=== PATIENT | female | born 1975 ===

== ENCOUNTER 2017-04-24 14:38 | Emergency (ER) | payer MEDICAID ==
[2017-04-24 14:39] VITALS: BMI 28.2
[2017-04-24] MEDS ORDERED: Sodium Chloride 0.9% 1,000 ML IV STA (15:01)
[2017-04-24 15:42] LABS: BASO % 0.6 % (0.0-2.0); EOS % 0.7 % (0.0-4.0); HEMATOCRIT 31.7 % (34.0-47.0); LYMPH # 1.1 K/uL (1.0-4.3); MEAN CELL VOLUME 97.3 fl (81.0-99.0); MEAN CORPUSCULAR HEMOGLOBIN 32.8 pg (27.0-31.0); MEAN CORPUSCULAR HGB CONC 33.7 g/dL (33.0-37.0); MEAN PLATELET VOLUME 9.8 fl (7.2-11.7); MONO # 0.5 K/uL (0.0-0.8); MONO % 12.9 % (0.0-10.0); NEUT % 55.8 % (50.0-75.0); NRBC % 0.2 % (0.0-0.0); RED CELL DISTRIBUTION WIDTH 13.3 % (11.5-14.5); WHITE BLOOD COUNT 3.6 K/uL (4.8-10.8)
[2017-04-24 15:50] LABS: ALB/GLOB RATIO 1.2 (1.0-2.1); ALKALINE PHOSPHATASE 57 U/L (38-126); ALT/SGPT 20 U/L (9-52); AST/SGOT 19 U/L (14-36); BILIRUBIN,TOTAL < 0.1 mg/dl (0.2-1.3); BLOOD UREA NITROGEN 9 mg/dl (7-17); CALCIUM 8.7 mg/dL (8.4-10.2); CARBON DIOXIDE 27 mmol/L (22-30); CHLORIDE 104 mmol/L (98-107); GFR AFRICAN-AMERICAN > 60; GLUCOSE,RANDOM 80 mg/dL (65-105); MAGNESIUM 1.7 MG/DL (1.6-2.3); POTASSIUM 3.7 MMOL/L (3.6-5.0); SODIUM 140 mmol/l (132-148)
--- NOTE | 2017-04-24 16:48 | ED PDOC ---
Syncope/Near Syncope/Dizziness Time Seen by Provider: 04/24/17 15:01 Chief Complaint (Nursing): Dizziness/Lightheaded Chief Complaint (Provider): syncope History Per: Patient (41 y/o female here with syncope x 2 episodes today. Has had intermittent chest pain radiating to right arm x few days. Seen in clinic today and sent to ED for evaluation. Patient is FIELD REPORTER. Has family h/o ME but patient does not believe any members with heart disease at young age. (-) smoking/ (-) HTN (-) DM ) Past Medical History Reviewed: Historical Data, Nursing Documentation, Vital Signs Vital Signs: Last Vital Signs Temp 99 F 04/24/17 14:41 Pulse 72 04/24/17 14:41 Resp 20 04/24/17 14:41 BP 123/70 04/24/17 14:41 Pulse Ox 98 04/24/17 14:41 - Surgical History Surgical History: Tonsillectomy, (x 4) - Family History Family History: States: CAD - Home Medications Home Medications: Ambulatory Orders Medication Instructions Recorded Albuterol HFA [Ventolin HFA 90 1 puff IH ASDIR #1 unit 07/06/15 mcg/actuation (8 g)] Benzonatate [Tessalon Perles] 200 mg PO Q8H PRN #30 tab 07/06/15 Levofloxacin [Levaquin] 500 mg PO DAILY #10 tab 07/06/15 Methylprednisolone [Medrol Dose 4 mg PO ASDIR #21 mg 07/06/15 Pack (21 tabs)] ALPRAZolam [Xanax] 0.25 mg PO HS PRN #5 tab 09/07/16 Azithromycin [Zithromax] 250 mg PO DAILY #4 tab 12/13/16 Cetirizine HCl/Pseudoephedrine 1 each PO BID PRN #10 tab.er.12h 12/13/16 [Zyrtec-D Tablet] - Allergies Allergies/Adverse Reactions: Allergies Allergy/AdvReac Type Severity Reaction Status Date / Time No Known Allergies Allergy Verified 04/24/17 14:40 Review of Systems ROS Statement: Except As Marked, All Systems Reviewed And Found Negative Physical Exam - Reviewed Nursing Documentation Reviewed: Yes Vital Signs Reviewed: Yes - Physical Exam Appears: Positive for: Well, Non-toxic, No Acute Distress Head Exam: Positive for: ATRAUMATIC, NORMAL INSPECTION, NORMOCEPHALIC Skin: Positive for: Normal Color, Warm, DRY Eye Exam: Positive for: EOMI, Normal appearance, PERRL ENT: Positive for: Normal ENT Inspection Neck: Positive for: Normal, Painless ROM Cardiovascular/Chest: Positive for: Regular Rate, Rhythm, Chest Non Tender Respiratory: Positive for: CNT, Normal Breath Sounds Gastrointestinal/Abdominal: Positive for: Normal Exam, Bowel Sounds, Soft Back: Positive for: Normal Inspection Extremity: Positive for: Normal ROM Neurologic/Psych: Positive for: Alert, Oriented - Laboratory Results Result Diagrams: 04/24/17 15:29 04/24/17 15:29 Urine POC: Negative - ECG O2 Sat by Pulse Oximetry: 98 - Progress ED Course And Treament: nsr 68bpm; no ectopy; no acute changes NS 1 liter wide open cxr: nad Seen by Family med resident. Admit tele obs for Syncope Disposition - Clinical Impression Clinical Impression: Syncope - Patient ED Disposition Is Patient to be Admitted: Yes - Disposition Disposition Time: 17:30 Condition: FAIR
--- NOTE | 2017-04-24 17:11 | RAD ---
Chest PA and lateral Indication: Chest pain Comparison: Chest x-ray performed 12/13/16 Findings: The cardiomediastinal silhouette appears within normal limits of size. Bilateral hilar prominence. No focal consolidation, significant pleural effusion, or definite pneumothorax evident. Please note that chest x-ray has limited sensitivity for the detection of pulmonary masses. No acute osseous abnormality is detected. Impression: Bilateral hilar prominence, right greater than left. Underlying adenopathy cannot be excluded. Correlate clinically. CT of the chest with IV contrast may be considered if clinically indicated.
--- NOTE | 2017-04-24 17:41 | CP.PCM.HP ---
History of Present Illness - History of Present Illness History of Present Illness: 41 year old female with PMH of anxiety, insomnia, reactive depression, PCOS, migraines sent to [facility] ED from [facility] clinic for complaints of chest pain and syncope. Syncopal episode was witnessed and reports loss of conciousness 'only lasted a ten seconds', and happened on 2 separate occasions. First episode during a BBQ, second episode was at [place], both episodes occurred while sitting. Denies trauma to head. She has right sided anterior chest pain that is reproducible with movement of right arm. Pain radiates to right neck however she is not currently experiencing pain in neck. Endorses urinary frequency, without dysuria/polyuria, endorses urine checked in clinic was negative. Her anxiety and insomnia have improved, however she is not currently on any medication for this. Denies h/a, dizziness, palpitations, chest heaviness or diaphoresis, nausea, vomiting recent illness, pedal edema. PMD: [facility] Psychiatry: Dr. Olson Meds: none allergies : NKDA Social :denies smoking ,etoh, illicit drug use Surgical Hx: hysterectomy, oophorectomy [employer]: LMP 2015. ED course: VS: T: 99, HR 72, BP:123/70, RR: 20, O2SAT: 98% on RA CBC: leukopenia, anemia CMP: WNL D-dimer: 128 EKG: NSR 68 CXR: no active disease. Trop negative x 1 NS 1L bolus Present on Admission - Present on Admission Any Indicators Present on Admission: No Past Patient History - Past Social History Smoking Status: Never Smoked - PSYCHIATRIC Hx Substance Use: No - SURGICAL HISTORY Hx Tonsillectomy: Yes Meds Allergies/Adverse Reactions: Allergies Allergy/AdvReac Type Severity Reaction Status Date / Time No Known Allergies Allergy Verified 04/24/17 14:40 Physical Exam - Constitutional Appears: Non-toxic, No Acute Distress - Head Exam Head Exam: NORMAL INSPECTION - Eye Exam Eye Exam: EOMI, Normal appearance - ENT Exam ENT Exam: Mucous Membranes Moist - Neck Exam Neck exam: Positive for: Full Rom - Respiratory Exam Respiratory Exam: Clear to Auscultation Bilateral, NORMAL BREATHING PATTERN Additional comments: anterior chest: right sided tenderness to palpation - Cardiovascular Exam Cardiovascular Exam: REGULAR RHYTHM, RRR, +S1, +S2. absent: Bradycardia, Tachycardia - GI/Abdominal Exam GI & Abdominal Exam: Soft. absent: Distended, Tenderness - Extremities Exam Extremities exam: Positive for: pedal pulses present (+2 DP). Negative for: calf tenderness, pedal edema - Neurological Exam Neurological exam: Alert, CN II-XII Intact, Oriented x3 Additional comments: No motor sesory deficit. - Psychiatric Exam Psychiatric exam: Normal Affect, Normal Mood - Skin Skin Exam: Dry, Intact, Normal Color Results - Vital Signs Recent Vital Signs: Last Vital Signs Temp 99 F 04/24/17 14:41 Pulse 72 04/24/17 14:41 Resp 20 04/24/17 14:41 BP 123/70 04/24/17 14:41 Pulse Ox 98 04/24/17 17:30 - Labs Result Diagrams: 04/24/17 15:29 04/24/17 15:29 Labs: Laboratory Results - last 24 hr 04/24/17 04/24/17 04/24/17 15:29 15:29 15:29 WBC 3.6 L RBC 3.26 L Hgb 10.7 L Hct 31.7 L MCV 97.3 MCH 32.8 H MCHC 33.7 RDW 13.3 Plt Count 223 MPV 9.8 Neut % (Auto) 55.8 Lymph % (Auto) 30.0 Glenn % (Auto) 12.9 H Eos % (Auto) 0.7 Baso % (Auto) 0.6 Neut # 2.0 Lymph # 1.1 Glenn # 0.5 Eos # 0.0 Baso # 0.0 D-Dimer, Quantitative 128 Sodium 140 Potassium 3.7 Chloride 104 Carbon Dioxide 27 Anion Gap 13 BUN 9 Creatinine 0.7 Est GFR ( Amer) > 60 Est GFR (Non-Af Amer) > 60 Random Glucose 80 Calcium 8.7 Magnesium 1.7 Total Bilirubin < 0.1 L AST 19 ALT 20 Alkaline Phosphatase 57 Troponin I < 0.0120 Total Protein 7.0 Albumin 3.8 Globulin 3.2 Albumin/Globulin Ratio 1.2 Assessment & Plan (1) Syncope Status: Acute (2) Anemia Status: Chronic (3) Leukopenia Status: Chronic (4) Chest pain Status: Acute (5) DVT prophylaxis Status: Acute - Assessment and Plan (Free Text) Assessment: 41 year old female with no cardiac history presents with two syncopal episodes, admitted for rule out ACS. Syncope is most likely neurocardiogenic in nature, rule out other causes. .Syncope Most likely neurocardiogenic in nature, however must rule out cardiac vs orthstatic vs pulmonary embolism vs acute intoxication -Consider Neuro eval pending CT results. -Cardiac etiology unlikely given normal ECG,troponins no indication for echocardiogram at this time. -follow up orthostatic vitals, unlikely given patient was sitting at the time of both syncopal episodes. -Pulmonary embolism ruled out: no dyspnea, chest pain, ECG changes. d-dimer 128 , WNL. -Follow up: * CT head without contrast * troponins * TSH * urine drug screen * serum alcohol .Leukopenia and Anemia chronic, stable Follow up: * HIV * Ferritin .Chest Pain -likely secondary to costochondritis, rule out ACS -EKG WNL, troponin neg x1 -tylenol for pain PRN -follow up troponins. .DVT prophylaxis Lovenox 40mg SC
--- NOTE | 2017-04-24 19:07 | CT ---
PROCEDURE: CT HEAD WITHOUT CONTRAST. HISTORY: syncope COMPARISON: None available. TECHNIQUE: Axial computed tomography images were obtained through the head/brain without intravenous contrast. Radiation dose: Total exam DLP = 889.87 mGy-cm. This CT exam was performed using one or more of the following dose reduction techniques: Automated exposure control, adjustment of the mA and/or kV according to patient size, and/or use of iterative reconstruction technique. FINDINGS: HEMORRHAGE: No intracranial hemorrhage. BRAIN: No mass effect or edema. The manuel-white matter differentiation appears intact. Please note that MRI with diffusion imaging is more sensitive in the detection of acute ischemic event. VENTRICLES: No hydrocephalus. CALVARIUM: Unremarkable. PARANASAL SINUSES: Unremarkable as visualized. No significant inflammatory changes. MASTOID AIR CELLS: Unremarkable as visualized. No inflammatory changes. OTHER FINDINGS: None. IMPRESSION: No acute intracranial pathology identified.
[2017-04-24 22:31] VITALS: BP 144/74; PULSE 69; RESP 14; TEMP 98.1; O2SAT 100
--- NOTE | 2017-04-24 23:41 | CARD ---
APPROVED REPORT EKG Measurement Heart [id number] <Conclusion> Normal sinus rhythm Normal ECG
[2017-04-25] MEDS ORDERED: Enoxaparin 40 mg Syringe SC SCH (09:00)
== END 2017-04-24 22:28 | disposition left against medical advice (07) ==
LOC: H.ER 14:38 → H.ERHOLD 17:30 → UNDOADMOB 17:30 → UNDODISOB 22:28
DX: R55 Syncope and collapse (principal); D72.818 Other decreased white blood cell count; F41.9 Anxiety disorder, unspecified; D64.9 Anemia, unspecified; G47.00 Insomnia, unspecified; E28.2 Polycystic ovarian syndrome; M94.0 Chondrocostal junction syndrome [Tietze]; Z21 Asymptomatic human immunodeficiency virus [HIV] infection status

== ENCOUNTER 2017-04-26 14:53 | Inpatient (IN) | payer MEDICAID ==
[2017-04-26 14:53] VITALS: BMI 28.2
[2017-04-26 17:06] LABS: RBC URINE 1 /hpf (0-3); URINE BACTERIA RARE (<OCC); URINE BILIRUBIN NEGATIVE (NEGATIVE); URINE BLOOD NEGATIVE (NEGATIVE); URINE COLOR YELLOW (YELLOW); URINE GLUCOSE (UA) NEG (Normal); URINE KETONE NEGATIVE (NEGATIVE); URINE LEUKOCYTE ESTERASE NEG Leu/uL (Negative); URINE PROTEIN NEGATIVE (NEGATIVE); URINE UROBILINOGEN 0.2-1.0 mg/dL (0.2-1.0); WBC URINE 1 /hpf (0-5)
[2017-04-26 17:07] LABS: BASO % 0.4 % (0.0-2.0); EOS # 0.1 K/uL (0.0-0.7); EOS % 1.5 % (0.0-4.0); HEMATOCRIT 32.3 % (34.0-47.0); LYMPH # 1.1 K/uL (1.0-4.3); LYMPH % 28.7 % (20.0-40.0); MEAN CORPUSCULAR HEMOGLOBIN 32.2 pg (27.0-31.0); MEAN CORPUSCULAR HGB CONC 32.9 g/dL (33.0-37.0); MEAN PLATELET VOLUME 9.8 fl (7.2-11.7); MONO # 0.5 K/uL (0.0-0.8); MONO % 12.8 % (0.0-10.0); NEUT # 2.1 K/uL (1.8-7.0); NEUT % 56.6 % (50.0-75.0); NRBC % 0.1 % (0.0-0.0); RED CELL DISTRIBUTION WIDTH 13.3 % (11.5-14.5); WHITE BLOOD COUNT 3.8 K/uL (4.8-10.8)
--- NOTE | 2017-04-26 17:09 | ED PDOC ---
HPI: General Adult Time Seen by Provider: 04/26/17 16:02 Chief Complaint (Nursing): Weakness/Neurological Deficit History Per: Patient Additional Complaint(s): Pt. states on Monday she had 2 witnessed syncopal episodes. Reports that she was seen in [facility] ED and was admitted but waited a long time therefore she signed out AMA. Pt. states since then she's felt very weak and therefore she went to [facility] and was instructed to come to ED for admission. Also reports she's been having R sided chest pain x 2 weeks which was also evaluated in the previous visit. Denies fever, headache, head injury, hx of DVT/PE, leg pain. Past Medical History Reviewed: Historical Data, Nursing Documentation, Vital Signs Vital Signs: Last Vital Signs Temp 97.8 F 04/26/17 14:54 Pulse 69 04/26/17 14:54 Resp 18 04/26/17 14:54 BP 120/97 H 04/26/17 14:54 Pulse Ox 100 04/26/17 14:54 - Surgical History Surgical History: Tonsillectomy, (x 4) - Family History Family History: States: CAD - Home Medications Home Medications: Ambulatory Orders Medication Instructions Recorded No Known Home Med 04/24/17 - Allergies Allergies/Adverse Reactions: Allergies Allergy/AdvReac Type Severity Reaction Status Date / Time No Known Allergies Allergy Verified 04/24/17 14:40 Review of Systems ROS Statement: Except As Marked, All Systems Reviewed And Found Negative Neurological: Positive for: Dizziness Physical Exam - Reviewed Nursing Documentation Reviewed: Yes Vital Signs Reviewed: Yes - Physical Exam Appears: Positive for: Well, Non-toxic, No Acute Distress Head Exam: Positive for: ATRAUMATIC, NORMAL INSPECTION, NORMOCEPHALIC Skin: Positive for: Normal Color, Warm. Negative for: Rash Eye Exam: Positive for: EOMI, Normal appearance, PERRL ENT: Positive for: Normal ENT Inspection Neck: Positive for: Normal, Painless ROM Cardiovascular/Chest: Positive for: Regular Rate, Rhythm Respiratory: Positive for: CNT, Normal Breath Sounds Gastrointestinal/Abdominal: Positive for: Normal Exam, Soft. Negative for: Tenderness Back: Positive for: Normal Inspection. Negative for: L CVA Tenderness, R CVA Tenderness Extremity: Positive for: Normal ROM Neurologic/Psych: Positive for: Alert, Oriented. Negative for: Aphasia, Facial Droop - ECG ECG: Positive for: Interpreted By Me ECG Rhythm: Positive for: Sinus Rhythm. Negative for: ST/T Changes Rate: 65 O2 Sat by Pulse Oximetry: 100 - Progress ED Course And Treament: Labs ordered. Pt. placed on cardiac surgeon. Case d/w Dr. Thapa, FP resident, and arrangements made for 23 hr observation. Disposition - Clinical Impression Clinical Impression: Acute weakness, Syncope - Patient ED Disposition Is Patient to be Admitted: Yes - Disposition Disposition: Routine/Home Disposition Time: 17:13 Condition: STABLE
[2017-04-26 17:13] LABS: PARTIAL THROMBOPLASTIN TIME 30.4 Seconds (25.6-37.1)
[2017-04-26 17:24] LABS: ALB/GLOB RATIO 1.2 (1.0-2.1); ALKALINE PHOSPHATASE 60 U/L (38-126); ALT/SGPT 29 U/L (9-52); AST/SGOT 25 U/L (14-36); BILIRUBIN,TOTAL 0.2 mg/dl (0.2-1.3); BLOOD UREA NITROGEN 13 mg/dl (7-17); CALCIUM 8.8 mg/dL (8.4-10.2); CARBON DIOXIDE 28 mmol/L (22-30); CHLORIDE 102 mmol/L (98-107); GFR AFRICAN-AMERICAN > 60; GLUCOSE,RANDOM 88 mg/dL (65-105); SODIUM 138 mmol/l (132-148); TOTAL PROTEIN 7.2 G/DL (6.3-8.2)
[2017-04-26 17:54] LABS: THYROID STIMULATING HORMONE 0.74 mIU/ML (0.46-4.68)
--- NOTE | 2017-04-26 18:51 | CP.PCM.HP ---
History of Present Illness - History of Present Illness History of Present Illness: CC/HPI: Pt. sent by PMD from [facility] for evaluation of syncope. Pt. reports she has had multiple episodes of syncope. Two disctinct episodes of syncope were witnessed on Monday April 24, 2017. Pt. states that she lost consciousness for approximately 10 seconds on both occasions but denies any fall, trauma, injury, incontinence, or head trauma. First episode during a BBQ, second episode was at [place], both episodes occurred in efforts to change positions from sitting to standing. Pt. reports went to the the [facility] today and the symptoms of feeling lightheaded and generalized weakness were still present thus was sent to the emergency room for further evaluation. Pt. was seen in the emergency room 2 days prior to today but left against medical advice before further evaluation could take place. ROS: Pt. denies any headache, chest pain, dyspnea, fever, chills, abdominal pain , nausea, vomiting, diarrhea, abdominal pain, flank pain, joint pain, limb pain , numbness tingling, incontinence, hematuria, or dysuria. PMHx: PCOS, Anxiety, Insomnia, Reactive Depression, Migraines PSHx: Hysterectomy, Tubal Ligation, Tonsillectomy, x 4 FMHx: Hx of CAD, Social :Denies smoking ,Etoh Social, Denies illicit drug use allergies : NKDA Home Meds: Currently none, (previously prescribed ambien, xanax, and sertraline by Psychiatrist Dr. Olson) PMD: [facility] Psychiatry: Dr. Olson Present on Admission - Present on Admission Any Indicators Present on Admission: No History of DVT/PE: No History of Uncontrolled Diabetes: No Urinary Catheter: No Decubitus Ulcer Present: No Review of Systems - Review of Systems Review of Systems: See HPI Past Patient History - Past Social History Smoking Status: Never Smoked - PSYCHIATRIC Hx Substance Use: No - SURGICAL HISTORY Hx Tonsillectomy: Yes - ANESTHESIA Hx Anesthesia: Yes Meds Allergies/Adverse Reactions: Allergies Allergy/AdvReac Type Severity Reaction Status Date / Time No Known Allergies Allergy Verified 04/24/17 14:40 Physical Exam - Constitutional Appears: Non-toxic, No Acute Distress - Head Exam Head Exam: ATRAUMATIC, NORMOCEPHALIC - Eye Exam Eye Exam: Normal appearance, PERRL. absent: Scleral icterus - ENT Exam ENT Exam: Mucous Membranes Moist - Neck Exam Neck exam: Positive for: Full Rom. Negative for: Thyromegaly - Respiratory Exam Respiratory Exam: NORMAL BREATHING PATTERN. absent: Respiratory Distress - Cardiovascular Exam Cardiovascular Exam: REGULAR RHYTHM, +S1, +S2 - GI/Abdominal Exam GI & Abdominal Exam: Soft. absent: Tenderness - Extremities Exam Extremities exam: Positive for: pedal pulses present. Negative for: calf tenderness - Neurological Exam Neurological exam: Alert, CN II-XII Intact - Psychiatric Exam Additional comments: Denies suicide ideation - Skin Skin Exam: Dry, Normal Color, Warm Results - Vital Signs Recent Vital Signs: Last Vital Signs Temp 97.8 F 04/26/17 14:54 Pulse 62 04/26/17 17:55 Resp 20 04/26/17 17:55 BP 114/77 04/26/17 17:55 Pulse Ox 98 04/26/17 17:55 - Labs Result Diagrams: 04/26/17 16:15 04/26/17 17:15 Labs: Laboratory Results - last 24 hr 04/26/17 04/26/17 17:15 17:30 Sodium 138 Potassium 4.0 Chloride 102 Carbon Dioxide 28 Anion Gap 12 BUN 13 Creatinine 0.7 Est GFR ( Amer) > 60 Est GFR (Non-Af Amer) > 60 Random Glucose 88 Calcium 8.8 Total Bilirubin 0.2 AST 25 ALT 29 Alkaline Phosphatase 60 Troponin I < 0.0120 Total Protein 7.2 Albumin 3.9 Globulin 3.3 Albumin/Globulin Ratio 1.2 TSH 3rd Generation 0.74 Urine Color Yellow Urine Clarity Slighty-cloudy Urine pH 6.0 Ur Specific [place] 1.020 Urine Protein Negative Urine Glucose (UA) Neg Urine Ketones Negative Urine Blood Negative Urine Nitrate Negative Urine Bilirubin Negative Urine Urobilinogen 0.2-1.0 Ur Leukocyte Esterase Neg Urine RBC (Auto) 1 Urine Microscopic WBC 1 Ur Squamous Epith Cells 11 H Urine Bacteria Rare Assessment & Plan - Assessment and Plan (Free Text) Assessment: 41 y.o. female with PMHx of Depression with new onset syncope Syncope of unclear etiology - EKG Normal Sinus Rhythm 1- admit to tele 2- Echocardiogram 3- Caratoid duplex 4- Fall precautions DVT prophylaxis 1- Lovenox 40mg sc Diet 1- Heart healthy
[2017-04-27] MEDS: Enoxaparin 40 mg Syringe SC SCH (10:13)
--- NOTE | 2017-04-27 14:32 | CP.PCM.PN ---
Subjective - Date & Time of Evaluation Date of Evaluation: 04/27/17 Time of Evaluation: 08:00 - Subjective Subjective: No acute events overnight. Patient slept well. No complaints at time of visit this morning. Denies any syncopal episodes since last visit. Denies palpitations , dizziness, dyspnea, chest. residential monitor reviewed, at times patient enters sinus bradycardia: HR 48-50s. Patient is hungry at time of visit and feels ok. Patient is pending echo and carotid dopplers. Cardiology consult. Objective - Vital Signs/Intake and Output Vital Signs (last 24 hours): Temp Pulse Resp BP Pulse Ox 98.5 F 58 L 14 122/79 100 04/27/17 12:38 04/27/17 12:38 04/27/17 12:38 04/27/17 12:38 04/27/17 12:38 - Medications Medications: Current Medications Acetaminophen (Tylenol 325mg Tab) 650 mg PO Q6 PRN PRN Reason: Pain, Mild (1-3) Last Admin: 04/27/17 13:57 Dose: 650 mg Enoxaparin Sodium (Lovenox) 40 mg SC DAILY SHIVA PRN Reason: Protocol Last Admin: 04/27/17 10:13 Dose: 40 mg Ibuprofen (Motrin Tab) 600 mg PO Q6 PRN PRN Reason: Pain, moderate (4-7) - Labs Labs: 04/26/17 17:15 PT 11.7 Seconds (9.8-13.1) 04/26/17 16:15 INR 1.0 (0.9-1.2) 04/26/17 16:15 APTT 30.4 Seconds (25.6-37.1) 04/26/17 16:15 - Constitutional Appears: Non-toxic, In Acute Distress - Head Exam Head Exam: NORMAL INSPECTION - Eye Exam Eye Exam: Normal appearance - ENT Exam ENT Exam: Mucous Membranes Moist - Respiratory Exam Respiratory Exam: Clear to Ausculation Bilateral, NORMAL BREATHING PATTERN. absent: Chest Wall Tenderness, Rales, Rhonchi, Wheezes, Respiratory Distress - Cardiovascular Exam Cardiovascular Exam: +S1, +S2, Murmur (systolic ). absent: Bradycardia, Tachycardia, JVD - GI/Abdominal Exam GI & Abdominal Exam: Soft, Normal Bowel Sounds. absent: Distended, Tenderness - Neurological Exam Neurological Exam: Alert, Awake, CN II-XII Intact, Oriented x3 - Psychiatric Exam Psychiatric exam: Normal Affect, Normal Mood - Skin Skin Exam: Dry, Intact Assessment and Plan - Assessment and Plan (Free Text) Assessment: 41 y.o. female with PMHx of Depression with new onset syncope x 2 admitted for rule out vasovagal, rule out cardiac cause. Patient is stable, can likely be discharged home pending cardiology evaluation, echo, carotid dopplers Syncope -etiology unclear. no events overnight. patient has systolic mumur, echo report is pending, carotid duplex is pending -orthostatics negative - EKG Normal Sinus Rhythm - Fall precautions Leukopenia and Anemia -chronic, etiology unknown -FOBT stool -patient requires evaluation by gastroenterology as outpatient due to chronic anemia. -patient requires evaluation by hematology/oncology as outpatient given chronic leukopenia. DVT prophylaxis - Lovenox 40mg sc Diet - Heart healthy
--- NOTE | 2017-04-27 17:53 | US ---
PROCEDURE: Duplex ultrasound of the carotid and vertebral arteries. HISTORY: syncope COMPARISON: None available. TECHNIQUE: Grayscale and duplex Doppler evaluation of the cervical carotid and vertebral arteries were performed. The common carotid, carotid bifurcations and cervical ICA and proximal ECA were evaluated. The vertebral arteries were evaluated for gross patency and direction. FINDINGS: RIGHT CAROTID ARTERIES: The current study reveals minimal intimal thickening in the right common carotid artery. No significant atherosclerotic plaque. Maximal right ICA velocity = 82.2 cm/S. Maximal left CCA velocity = 81.4 cm/S ICA/CCA ratio = 1.0 LEFT CAROTID ARTERIES: Very minor intimal thickening also seen in the left common carotid artery. No significant atherosclerotic plaque. Maximal left ICA velocity = 110.3 cm/S Maximal left CCA velocity = 100.6 cm/S ICA/CCA ratio = 1 1 VERTEBRAL ARTERIES: Right Vertebral Artery: Patent. Antegrade flow. Left Vertebral Artery: Patent. Antegrade flow. OTHER FINDINGS: None. IMPRESSION: No significant atherosclerotic plaque. There are however elevated velocities seen in the left internal carotid artery on which corresponds to between 40 and 59 % diameter stenosis based on velocity measurements. . Consider followup MRA and/or CTA of the neck to further characterize carotid circulation
--- NOTE | 2017-04-27 23:17 | CARD ---
APPROVED REPORT EXAM: Two-dimensional and M-mode echocardiogram with Doppler and color Doppler. Other Information Quality : ExcellentRhythm : NSR INDICATION Syncope 2D DIMENSIONS IVSd0.95 (0.7-1.1cm)LVDd4.79 (3.9-5.9cm) LVOT Diameter2.43 (1.8-2.4cm)PWd1.02 (0.7-1.1cm) IVSs1.14 (0.8-1.2cm)LVDs3.60 (2.5-4.0cm) FS (%) 25.0 %PWs1.34 (0.8-1.2cm) LVEF (%)55.0 (>50%) M-Mode DIMENSIONS Left Atrium (MM)4.00 (2.5-4.0cm)IVSd0.91 (0.7-1.1cm) Aortic Root3.09 (2.2-3.7cm)LVDd4.96 (4.0-5.6cm) Aortic Cusp Exc.1.93 (1.5-2.0cm)PWd0.99 (0.7-1.1cm) IVSs1.19 cmFS (%) 27 % LVDs3.64 (2.0-3.8cm)PWs1.21 cm Mitral Valve MV E Mlufxbyw99.8cm/sMV DECEL [id number] A Udxyleed37.8cm/s MV BUN82woV/A ratio1.5MVA (PHT)2.95cm2 TDI Lateral E' Peak V11.65cm/sMedial E' Peak V10.35cm/sE/Lateral E'8.1 E/Medial E'9.2 Tricuspid Valve TR Peak Cifioizc803bm/sRAP [id number] Peak Gr.18mmHg [id number] LEFT VENTRICLE The left ventricle is normal size. There is normal left ventricular wall thickness. The left ventricular function is normal. The left ventricular ejection fraction is within the normal range. There is normal LV segmental wall motion. The left ventricular diastolic function is normal. RIGHT VENTRICLE The right ventricle is normal size. There is normal right ventricular wall thickness. The right ventricular systolic function is normal. ATRIA The left atrium is borderline dilated. The right atrium size is normal. AORTIC VALVE The aortic valve is mildly thickened. No aortic regurgitation is present. There is no aortic valvular stenosis. MITRAL VALVE The mitral valve is mildly thickened. There is no mitral valve stenosis. Mitral regurgitation is mild to moderate. TRICUSPID VALVE The tricuspid valve is normal in structure There is mild tricuspid regurgitation. PULMONIC VALVE The pulmonary valve is normal in structure and function. There is no pulmonic valvular regurgitation. GREAT VESSELS The aortic root is normal in size. The IVC collapses <50% with inspiration. PERICARDIAL EFFUSION The pericardium appears normal. <Conclusion> The left ventricle is normal size. There is normal left ventricular wall thickness. The left ventricular function is normal. The left ventricular ejection fraction is within the normal range. There is normal LV segmental wall motion. Mitral regurgitation is mild to moderate. There is mild tricuspid regurgitation.
--- NOTE | 2017-04-28 00:04 | CARD ---
APPROVED REPORT EKG Measurement Heart [id number] <Conclusion> Normal sinus rhythm Possible Left atrial enlargement Borderline ECG
[2017-04-28 08:04] VITALS: RESP 18
[2017-04-28 08:04] LABS: LYME DISEASE SCREEN <0.90 index
[2017-04-28] MEDS: Enoxaparin 40 mg Syringe SC SCH (09:08)
[2017-04-28 12:20] VITALS: BP 113/74; PULSE 63; TEMP 98.4; O2SAT 99
--- NOTE | 2017-04-28 19:06 | CP.PCM.DIS ---
Provider - Provider Date of Admission: 04/27/17 19:31 Attending physician: Kaitlin Duran MD Time Spent in preparation of Discharge (in minutes): 30 Diagnosis - Discharge Diagnosis (1) Syncope Status: Resolved Hospital Course - Lab Results Lab Results: Most Recent Lab Values WBC 3.8 K/uL (4.8-10.8) L 04/26/17 16:15 RBC 3.30 Mil/uL (3.80-5.20) L 04/26/17 16:15 Hgb 10.6 g/dL (12.0-16.0) L 04/26/17 16:15 Hct 32.3 % (34.0-47.0) L 04/26/17 16:15 MCV 98.0 fl (81.0-99.0) 04/26/17 16:15 MCH 32.2 pg (27.0-31.0) H 04/26/17 16:15 MCHC 32.9 g/dL (33.0-37.0) L 04/26/17 16:15 RDW 13.3 % (11.5-14.5) 04/26/17 16:15 Plt Count 208 K/uL (130-400) 04/26/17 16:15 MPV 9.8 fl (7.2-11.7) 04/26/17 16:15 Neut % (Auto) 56.6 % (50.0-75.0) 04/26/17 16:15 Lymph % (Auto) 28.7 % (20.0-40.0) 04/26/17 16:15 [place] % (Auto) 12.8 % (0.0-10.0) H 04/26/17 16:15 Eos % (Auto) 1.5 % (0.0-4.0) 04/26/17 16:15 Baso % (Auto) 0.4 % (0.0-2.0) 04/26/17 16:15 Neut # 2.1 K/uL (1.8-7.0) 04/26/17 16:15 Lymph # 1.1 K/uL (1.0-4.3) 04/26/17 16:15 [place] # 0.5 K/uL (0.0-0.8) 04/26/17 16:15 Eos # 0.1 K/uL (0.0-0.7) 04/26/17 16:15 Baso # 0.0 K/uL (0.0-0.2) 04/26/17 16:15 PT 11.7 Seconds (9.8-13.1) 04/26/17 16:15 INR 1.0 (0.9-1.2) 04/26/17 16:15 APTT 30.4 Seconds (25.6-37.1) 04/26/17 16:15 Sodium 138 mmol/l (132-148) 04/26/17 17:15 Potassium 4.0 MMOL/L (3.6-5.0) 04/26/17 17:15 Chloride 102 mmol/L (98-107) 04/26/17 17:15 Carbon Dioxide 28 mmol/L (22-30) 04/26/17 17:15 Anion Gap 12 (10-20) 04/26/17 17:15 BUN 13 mg/dl (7-17) 04/26/17 17:15 Creatinine 0.7 mg/dL (0.7-1.2) 04/26/17 17:15 Est GFR ( Amer) > 60 04/26/17 17:15 Est GFR (Non-Af Amer) > 60 04/26/17 17:15 Random Glucose 88 mg/dL (65-105) 04/26/17 17:15 Calcium 8.8 mg/dL (8.4-10.2) 04/26/17 17:15 Total Bilirubin 0.2 mg/dl (0.2-1.3) 04/26/17 17:15 AST 25 U/L (14-36) 04/26/17 17:15 ALT 29 U/L (9-52) 04/26/17 17:15 Alkaline Phosphatase 60 U/L (38-126) 04/26/17 17:15 Troponin I < 0.0120 ng/mL (0.00-0.120) 04/26/17 17:15 NT-Pro-B Natriuret Pep 169 pg/ml (0-450) 04/27/17 14:57 Total Protein 7.2 G/DL (6.3-8.2) 04/26/17 17:15 Albumin 3.9 g/dL (3.5-5.0) 04/26/17 17:15 Globulin 3.3 gm/dL (2.2-3.9) 04/26/17 17:15 Albumin/Globulin Ratio 1.2 (1.0-2.1) 04/26/17 17:15 Vitamin B12 199 pg/mL (239-931) L 04/27/17 14:57 TSH 3rd Generation 0.74 mIU/ML (0.46-4.68) 04/26/17 17:15 Urine Color Yellow (YELLOW) 04/26/17 17:30 Urine Clarity Slighty-cloudy (Clear) 04/26/17 17:30 Urine pH 6.0 (5.0-8.0) 04/26/17 17:30 Ur Specific [place] 1.020 (1.003-1.030) 04/26/17 17:30 Urine Protein Negative mg/dL (NEGATIVE) 04/26/17 17:30 Urine Glucose (UA) Neg mg/dL (Normal) 04/26/17 17:30 Urine Ketones Negative mg/dL (NEGATIVE) 04/26/17 17:30 Urine Blood Negative (NEGATIVE) 04/26/17 17:30 Urine Nitrate Negative (NEGATIVE) 04/26/17 17:30 Urine Bilirubin Negative (NEGATIVE) 04/26/17 17:30 Urine Urobilinogen 0.2-1.0 mg/dL (0.2-1.0) 04/26/17 17:30 Ur Leukocyte Esterase Neg Neal/uL (Negative) 04/26/17 17:30 Urine RBC (Auto) 1 /hpf (0-3) 04/26/17 17:30 Urine Microscopic WBC 1 /hpf (0-5) 04/26/17 17:30 Ur Squamous Epith Cells 11 /hpf (0-5) H 04/26/17 17:30 Urine Bacteria Rare (<OCC) 04/26/17 17:30 Lyme Disease Screen <0.90 index 04/27/17 14:57 - Hospital Course Hospital Course: 41 year old female admitted for 2 syncopal episodes, rule out cardiac cause vs vasovagal. Patient was leukopenic and anemic which are chronic, etiology is unknown. She has hx of heart murmur, echocardiography revealed normal LVEF, aortic valve mildy thickened, mild tricuspid regurgitation, mild to moderate mitral regurgitation. Lyme screen Negative. B12 level was 199, given inj b12. Given b12 deficiency, Additional studies ordered to be followed up outpatient. Due to anemia FOBT ordered. Given that patient has been asymptomatic for the duration of the admission, she is stable for discharge. No complaints during visit today. Patient has appointment for GI/Cardio and GAC. She will make appt with Hematology/oncology. Will likely need referrals for these appointments. No medications given at time of discharge. Discharge Exam - Head Exam Head Exam: NORMAL INSPECTION - Eye Exam Eye Exam: Normal appearance - Respiratory Exam Respiratory Exam: Clear to PA & Lateral, NORMAL BREATHING PATTERN, UNREMARKABLE - Cardiovascular Exam Cardiovascular Exam: REGULAR RHYTHM, +S1, +S2, Systolic Murmur - GI/Abdominal Exam GI & Abdominal Exam: Unremarkable. absent: Distended - Rectal Exam Rectal Exam: Deferred - Neurological Exam Neurological exam: Alert, CN II-XII Intact, Oriented x3 - Skin Skin Exam: Dry, Intact Discharge Plan - Follow Up Plan Condition: STABLE Disposition: HOME/ ROUTINE Instructions: Syncope (DC), Syncope (GEN) Additional Instructions: Follow up at the [facility] on May 08, 2017 at 2:20 PM Pt has Cardiology appointment on May at 10:45 AM Pt has Gastroenterology appointment on July 28, at 12:20PM Patient needs to make an appointment for hematology oncology.
[2017-04-30 22:47] LABS: INTRINSIC FACTOR BLOCK AB Positive (Negative)
[2017-05-01 15:38] LABS: PARIETAL CELL AB SCREEN Negative (Negative)
== END 2017-04-28 14:00 | disposition home or self-care (01) | DRG 141 ==
LOC: H.ER 14:53 → INTOOBSV 16:44 → H.ERHOLD 16:44 → H.TEL 18:53 → OBSVTOIN 04-27 19:31
PROVIDERS: ADMIT Family Medicine Geriatric Medicine; ATTEND Family Medicine Geriatric Medicine
DX: R55 Syncope and collapse (principal); E53.8 Deficiency of other specified B group vitamins; D64.9 Anemia, unspecified; D72.819 Decreased white blood cell count, unspecified; M79.601 Pain in right arm

== ENCOUNTER 2018-02-20 20:06 | Emergency (ER) | payer MEDICAID ==
[2018-02-20 20:06] VITALS: BMI 28.2
[2018-02-20 20:15] VITALS: RESP 18; TEMP 98.4
--- NOTE | 2018-02-20 20:49 | ED PDOC ---
HPI: General Adult Time Seen by Provider: 02/20/18 20:26 Chief Complaint (Nursing): Breast Problem Chief Complaint (Provider): breast pain History Per: Patient History/Exam Limitations: no limitations Onset/Duration Of Symptoms: Days (2 weeks), Waxing/Waning Current Symptoms Are (Timing): Still Present Additional Complaint(s): 42 y/o female presents for evaluation of intermittent bilateral breast pain x 2 weeks. Patient states she feels certain areas hurt when she touches them, and notes sometimes pain will go in to right axilla. Denies fever, cough, congestion, nausea/vomiting, shortness of breath, palpitations, abdominal pain, urinary symptoms. Past Medical History Reviewed: Historical Data, Nursing Documentation, Vital Signs Vital Signs: Last Vital Signs Temp 98.4 F 02/20/18 20:11 Pulse 62 02/20/18 20:11 Resp 18 02/20/18 20:11 BP 130/89 02/20/18 20:11 Pulse Ox 100 02/20/18 20:59 - Medical History PMH: No Chronic Diseases - Surgical History Surgical History: Tonsillectomy, (x 4) Other surgeries: hysterectomy - Family History Family History: States: CAD - Home Medications Home Medications: Ambulatory Orders Medication Instructions Recorded Naproxen [Naprosyn] 500 mg PO Q12 PRN #20 tablet 02/20/18 - Allergies Allergies/Adverse Reactions: Allergies Allergy/AdvReac Type Severity Reaction Status Date / Time No Known Allergies Allergy Verified 04/24/17 14:40 Review of Systems ROS Statement: Except As Marked, All Systems Reviewed And Found Negative Musculoskeletal: Positive for: Other (breast pain) Physical Exam - Reviewed Nursing Documentation Reviewed: Yes Vital Signs Reviewed: Yes - Physical Exam Appears: Positive for: Well, Non-toxic, No Acute Distress Head Exam: Positive for: ATRAUMATIC, NORMAL INSPECTION, NORMOCEPHALIC Skin: Positive for: Normal Color Eye Exam: Positive for: Normal appearance ENT: Positive for: Normal ENT Inspection Cardiovascular/Chest: Positive for: Regular Rate, Rhythm, Other (breast exam: right breast tender to palpate 5:00 position with small mobile mass. Left breast tender to palpate 10:00 position without palpable mass. No nipple discharge or retraction noted). Negative for: Chest Non Tender (tenderness upon palpation midsternal chest; no ecchyomsis, flail chest, edema noted) Respiratory: Positive for: Normal Breath Sounds Gastrointestinal/Abdominal: Positive for: Normal Exam Back: Positive for: Normal Inspection Extremity: Positive for: Normal ROM Neurologic/Psych: Positive for: Alert, Oriented - Laboratory Results Result Diagrams: 02/20/18 21:01 02/20/18 21:01 - ECG ECG: Positive for: Viewed By Me (reviewed by ED attending) ECG Rhythm: Positive for: Sinus Rhythm O2 Sat by Pulse Oximetry: 100 Pulse Ox Interpretation: Normal - Radiology X-Ray: Viewed By Me X-Ray Interpretation: No Acute Disease - Progress ED Course And Treament: labs, ekg, chest xray, breast u/s EXAM: US Left Breast, Limited CLINICAL HISTORY: 42 years old, female; Pain; Breast pain; Bilateral TECHNIQUE: Real-time ultrasound scan of the left breast with image documentation. COMPARISON: No relevant prior studies available. FINDINGS: Breast: Unremarkable. No abscess. IMPRESSION: No cystic or solid mass identified at the area of concern in the left breast. EXAM: US Right Breast, Limited CLINICAL HISTORY: 42 years old, female; Pain; Breast pain; Bilateral TECHNIQUE: Real-time ultrasound scan of the right breast with image documentation. COMPARISON: No relevant prior studies available. FINDINGS: Breast: Unremarkable. No abscess. IMPRESSION: No cystic or solid mass identified at the area of concern in the right breast. Patient educated on findings, discharged with rx Naproxen Advised follow up PMD/[employer] Return precautions given. Disposition - Clinical Impression Clinical Impression: Breast pain, Chest wall pain - Patient ED Disposition Is Patient to be Admitted: No Counseled Patient/Family Regarding: Studies Performed, Diagnosis, Need For Followup, Rx Given - Disposition Disposition: Routine/Home Disposition Time: 23:14 Condition: IMPROVED Prescriptions: Naproxen [Naprosyn] 500 mg PO Q12 PRN #20 tablet PRN Reason: Pain, Moderate (4-7) Instructions: Mastalgia, Chest Pain That Is Not Caused by the Heart (DC), Common Breast Problems Forms: [employer] (Paraguayan)
[2018-02-20 21:04] LABS: BASO % 0.3 % (0.0-2.0); EOS # 0.1 K/uL (0.0-0.7); EOS % 1.7 % (0.0-4.0); HEMOGLOBIN 11.7 g/dL (12.0-16.0); LYMPH # 1.7 K/uL (1.0-4.3); LYMPH % 41.4 % (20.0-40.0); MEAN CELL VOLUME 97.7 fl (81.0-99.0); MEAN CORPUSCULAR HEMOGLOBIN 32.3 pg (27.0-31.0); MEAN PLATELET VOLUME 9.2 fl (7.2-11.7); MONO # 0.5 K/uL (0.0-0.8); MONO % 12.7 % (0.0-10.0); NEUT # 1.8 K/uL (1.8-7.0); NEUT % 43.9 % (50.0-75.0); NRBC % 0.1 % (0.0-0.0); RBC 3.61 Mil/uL (3.80-5.20); RED CELL DISTRIBUTION WIDTH 13.4 % (11.5-14.5)
[2018-02-20 21:15] LABS: ALB/GLOB RATIO 1.2 (1.0-2.1); ALBUMIN 4.2 g/dL (3.5-5.0); ALT/SGPT 25 U/L (9-52); AST/SGOT 26 U/L (14-36); BLOOD UREA NITROGEN 12 mg/dl (7-17); CALCIUM 9.1 mg/dL (8.4-10.2); GFR AFRICAN-AMERICAN > 60; GFR NON-AFRICAN AMERICAN > 60
[2018-02-20 23:23] VITALS: BP 122/76; PULSE 63; O2SAT 98
--- NOTE | 2018-02-21 07:33 | RAD ---
HISTORY: chest wall pain COMPARISON: Chest radiographs 04/24/2017 TECHNIQUE: Chest PA and lateral FINDINGS: LUNGS: No active pulmonary disease. PLEURA: No significant pleural effusion identified. No pneumothorax apparent. CARDIOVASCULAR: Normal. OSSEOUS STRUCTURES: No significant abnormalities. VISUALIZED UPPER ABDOMEN: Normal. OTHER FINDINGS: None. IMPRESSION: No interval acute cardiopulmonary disease appreciated.
--- NOTE | 2018-02-21 08:16 | CARD ---
APPROVED REPORT EKG Measurement Heart [id number] <Conclusion> Sinus bradycardia Possible Left atrial enlargement Borderline ECG
--- NOTE | 2018-02-21 09:45 | US ---
PROCEDURE: Bilateral breast ultrasound HISTORY: Bilateral breast pain COMPARISON: 10/12/2016 ultrasound left breast. TECHNIQUE: Standard protocol for this study/examination. FINDINGS: Right breast: Cyst(s): None Breast mass: None Dilated ducts: None Parenchymal distortion: None Skin thickening or subcutaneous abnormalities: None Left breast: Cyst(s): None Breast mass: None Dilated ducts: None Parenchymal distortion: None Skin thickening or subcutaneous abnormalities: None IMPRESSION: BIRADS 1 (negative) Patient management should be based on findings on physical examination in the absence of either ultrasound and/or mammographic correlate. Concordant results (preliminary interpretation) provided by [facility]. Procedure Completed: 22:07 Preliminary ([facility]) Report: Dictated and Authenticated: 22:46 Final Interpretation: 08:43 February 21, 2018.
== END 2018-02-20 23:23 | disposition home or self-care (01) ==
LOC: H.ER 20:06
DX: N64.4 Mastodynia (principal); R07.89 Other chest pain; Z90.710 Acquired absence of both cervix and uterus
CPT/HCPCS: 71046; 76642; 80053; 81025; 84484; 85025; 93005; 96374; 99282; J1885

== ENCOUNTER 2018-08-29 19:28 | Observation (INO) | payer MEDICAID ==
[2018-08-29 19:28] VITALS: BMI 28.2
[2018-08-29 19:37] VITALS: O2SAT 98
--- NOTE | 2018-08-29 21:52 | ED PDOC ---
HPI: Trauma/Fall - HPI Time Seen by Provider: 08/29/18 20:42 Chief Complaint (Nursing): Trauma History Per: Patient History/Exam Limitations: no limitations Injury Occurred (Timing): Hours Ago: (yesterday afternoon) Additional Complaint(s): 43 year old female with no significant past medical history presents to the emergency department complaining of posterior neck pain s/p fall down a few s tairs yesterday afternoon. Admits to head strike but denies loss of consciousness. Patient states pain is dull, worse with movement and she is unable to fully flex or extend her neck. No difficulty with rotation or lateral flexion. Patient has not taken any medication for pain. Denies headache, numb ness or paresthesias of extremities, weakness, facial droop, difficulty walking, lower back pain, shortness of breath, vision changes, bowel or bladder incontinence, saddle anesthesia, nausea, vomiting, abdominal pain. Past Medical History Reviewed: Historical Data, Nursing Documentation, Vital Signs Vital Signs: Last Vital Signs Temp 98.5 F 08/29/18 19:35 Pulse 73 08/29/18 19:35 Resp 16 08/29/18 19:35 BP 135/80 08/29/18 19:35 Pulse Ox 98 08/29/18 19:35 - Surgical History Surgical History: Tonsillectomy, (x 4) - Family History Family History: States: CAD - Home Medications Home Medications: Ambulatory Orders Medication Instructions Recorded Zolpidem Tartrate [Ambien Cr] 12.5 mg PO HS 08/30/18 - Allergies Allergies/Adverse Reactions: Allergies Allergy/AdvReac Type Severity Reaction Status Date / Time No Known Allergies Allergy Verified 08/29/18 19:35 Review of Systems ROS Statement: Except As Marked, All Systems Reviewed And Found Negative Constitutional: Negative for: Fever, Chills Eyes: Negative for: Pain, Vision Change ENT: Negative for: Nose Pain, Nose Congestion, Mouth Pain, Throat Pain Cardiovascular: Negative for: Chest Pain, Palpitations Respiratory: Negative for: Cough, Shortness of Breath Gastrointestinal: Negative for: Nausea, Vomiting, Abdominal Pain Musculoskeletal: Positive for: Neck Pain. Negative for: Shoulder Pain, Arm Pain, Back Pain, Hand Pain, Leg Pain, Foot Pain Neurological: Negative for: Weakness, Numbness, Incoordination, Confusion, Headache, Dizziness Physical Exam - Reviewed Nursing Documentation Reviewed: Yes Vital Signs Reviewed: Yes - Physical Exam Appears: Positive for: Well, Non-toxic, No Acute Distress Skin: Positive for: Normal Color, Warm, DRY Eye Exam: Positive for: EOMI, Normal appearance, PERRL Neck: Positive for: Decreased ROM (secondary to pain; + midline tenderness), Trachea Midline, Pain On Movement Of Neck (extension/flexion) Cardiovascular/Chest: Positive for: Regular Rate, Rhythm Respiratory: Positive for: CNT, Normal Breath Sounds Back: Positive for: Normal Inspection. Negative for: Vertebral Tenderness, Decreased ROM Extremity: Positive for: Normal ROM, Capillary Refill (<2s). Negative for: Tenderness, Deformity, Swelling, Other (numbness, paresthesias) Neurologic/Psych: Positive for: Alert, family intervention specialist II-XII (intact), Oriented, Gait (s teady). Negative for: Motor/Sensory Deficits, Facial Droop - Laboratory Results Result Diagrams: 08/30/18 00:50 08/30/18 00:50 - ECG O2 Sat by Pulse Oximetry: 98 Medical Decision Making Medical Decision Makin CT Head FINDINGS: BRAIN No acute intraparenchymal hemorrhage. No mass lesion. No CT evidence for acute territorial infarct. No midline shift or extra-axial collections. VENTRICLES: No hydrocephalus. ORBITS: The orbits are unremarkable. SINUSES AND MASTOIDS: The paranasal sinuses and mastoid air cells are clear. BONES: No fracture. SOFT TISSUES: Unremarkable. IMPRESSION: No acute intracranial abnormality 2104 CT C-Spine FINDINGS: ALIGNMENT Minimal grade 1 anterolisthesis of C3 on C4. Bony alignment is anatomic. DEGENERATIVE CHANGES Mild degenerative change at C3-C4 level No significant canal stenosis or neural foraminal narrowing evident. SOFT TISSUES The prevertebral soft tissues are within normal limits. BONES No acute fracture or aggressive appearing osseous lesion. IMPRESSION: Minimal grade 1 anterolisthesis of C3 on C4. No acute cervical spine abnormality Spoke with Dr. Blackwood (neurosurgery) regarding pt. recommends extension/flexion films to determine stability of C-spine. Flexion/Extension films read by Dr. Blackwood as possible unstable anterolisthesis. Recommends admission to hospitalist service, cervical collar, and MRI in the morning. Cervical collar placed on pt at approx 12am. Plan of care and diagnostic imaging discussed with pt, who understands need for admission and agrees. Spoke with hospitalist Dr. Hernández who has accepted the pt for inpatient admission. Will get basic labs and EKG. Pt moved to main ED. Impression: Traumatic Anterolisthesis Plan: cervical collar admission to hospital MRI in the morning Disposition - Clinical Impression Clinical Impression: Anterolisthesis - Patient ED Disposition Is Patient to be Admitted: Yes Discussed With DrMarilyn: Vladimir Blackwood (Recommends admission to hospital for MRI in the morning based on unknown stability of C-spine) Doctor Will See Patient In The: Hospital Counseled Patient/Family Regarding: Studies Performed, Diagnosis - Disposition Disposition Time: 22:30 Condition: STABLE
[2018-08-30] MEDS ORDERED: Sodium Chloride 0.9% 1,000 ML IV SCH (00:15)
--- NOTE | 2018-08-30 00:41 | CP.PCM.HP ---
<Laura Ponce - Last Filed: 08/30/18 01:23> History of Present Illness - History of Present Illness History of Present Illness: 43 year old female presented with complaints of neck pain that began 1 day after fall. She was going down stairs, missed a step and fell back. She caught herself but did hit her upper back. No head trauma, no LOC. She was able to get up and walk and worked a full day yesterday. She presented to ED since pain persisted. It is mild, worse with looking down but she has full range of motion of her neck. No numbness, tingling or weakness in upper extremities. Patient took Motrin at home that alleviated her pain. She otherwise feels well. ROS: No fevers, chills, dizziness, headache, chest pain, dyspnea, nausea, vomiting, abdominal pain. PMH: insomnia Medications: Ambien CR 12.5mg Allergies: NKDA Social: No tobacco, etoh use Surgical Hx: x 4 Present on Admission - Present on Admission Any Indicators Present on Admission: No Past Patient History - Past Medical History & Family History Past Medical History?: No - Past Social History Smoking Status: Never Smoked Alcohol: None Drugs: Denies - CARDIAC Hx Cardiac Disorders: No - MUSCULOSKELETAL/RHEUMATOLOGICAL Hx Falls: No - PSYCHIATRIC Hx Substance Use: No - SURGICAL HISTORY Hx Tonsillectomy: Yes - ANESTHESIA Hx Anesthesia: Yes Meds Allergies/Adverse Reactions: Allergies Allergy/AdvReac Type Severity Reaction Status Date / Time No Known Allergies Allergy Verified 08/29/18 19:35 Physical Exam - Constitutional Appears: Well, No Acute Distress - Neck Exam Additional comments: wearing cervical collar - Respiratory Exam Respiratory Exam: Clear to Auscultation Bilateral, NORMAL BREATHING PATTERN. absent: Rales, Rhonchi, Wheezes - Cardiovascular Exam Cardiovascular Exam: REGULAR RHYTHM, +S1, +S2, Systolic Murmur - GI/Abdominal Exam GI & Abdominal Exam: Normal Bowel Sounds, Soft. absent: Distended, Guarding, Tenderness - Extremities Exam Extremities exam: Positive for: full ROM, normal inspection. Negative for: pedal edema - Neurological Exam Neurological exam: Alert, CN II-XII Intact, Oriented x3 - Psychiatric Exam Psychiatric exam: Normal Affect, Normal Mood - Skin Skin Exam: Dry, Intact, Normal Color, Warm Results - Vital Signs Recent Vital Signs: Last Vital Signs Temp 98.5 F 08/29/18 19:35 Pulse 73 08/29/18 19:35 Resp 16 08/29/18 19:35 BP 135/80 08/29/18 19:35 Pulse Ox 98 08/29/18 22:38 - Labs Result Diagrams: 08/30/18 00:50 Assessment & Plan - Assessment and Plan (Free Text) Assessment: #Neck pain s/p fall #Anterolisthesis #Insomnia 43 year old female with neck pain s/p fall, with grade 1 anterolisthesis of C3 on C4. No neurological symptoms/deficits. Neurosurgical consult obtained in ED- recommending MRI. Plan: -follow up MRI -cervical collar in place -SCDs -Motrin for pain -resume home med Case d/w attending <Arias Hernández - Last Filed: 08/30/18 02:24> Results - Vital Signs Recent Vital Signs: Last Vital Signs Temp 98.5 F 08/29/18 19:35 Pulse 73 08/29/18 19:35 Resp 16 08/29/18 19:35 BP 135/80 08/29/18 19:35 Pulse Ox 98 08/29/18 22:38 - Labs Result Diagrams: 08/30/18 00:50 08/30/18 00:50 Labs: Laboratory Results - last 24 hr 08/30/18 08/30/18 08/30/18 00:50 00:50 00:50 WBC 3.9 L RBC 3.57 L Hgb 11.8 L Hct 35.2 MCV 98.4 MCH 33.0 H MCHC 33.5 RDW 13.7 Plt Count 214 MPV 9.6 Neut % (Auto) 43.8 L Lymph % (Auto) 39.1 Sharp % (Auto) 14.2 H Eos % (Auto) 2.3 Baso % (Auto) 0.6 Neut # (Auto) 1.7 L Lymph # (Auto) 1.5 Sharp # (Auto) 0.5 Eos # (Auto) 0.1 Baso # (Auto) 0.0 PT 11.4 INR 1.0 APTT 32.5 Sodium 138 Potassium 3.8 Chloride 102 Carbon Dioxide 30 Anion Gap 10 BUN 16 Creatinine 0.6 L Est GFR ( Amer) > 60 Est GFR (Non-Af Amer) > 60 Random Glucose 98 Calcium 9.1 Total Bilirubin 0.3 AST 28 ALT 18 Alkaline Phosphatase 79 Total Protein 8.0 Albumin 4.2 Globulin 3.8 Albumin/Globulin Ratio 1.1 Attending/Attestation - Attestation I have personally seen and examined this patient.: Yes I have fully participated in the care of the patient.: Yes I have reviewed all pertinent clinical information: Yes Notes (Text): 08/30/18 02:12 I saw, examined and discussed this patient with Dr Ponce. i agree with the assessment and plan outlined above. This is a 43 years old female who missed her footing walking down the stair, falling backwards . No significant tauma, but the unexpected sudden brisk extension of the neck resulting in neck pain which persisted and increases on edwin flexion of the neck. The CT of the Cervical spine showed a grade 1 anterolisthesis of C3 on C4. Neuro surgery recommended Observation until MRI of the neck could be done as this anterolisthesis appeared to be unstable. Arias Hernández MD.
[2018-08-30 00:59] LABS: BASO % 0.6 % (0.0-2.0); EOS # 0.1 K/uL (0.0-0.7); EOS % 2.3 % (0.0-4.0); HEMOGLOBIN 11.8 g/dL (12.0-16.0); LYMPH # 1.5 K/uL (1.0-4.3); LYMPH % 39.1 % (20.0-40.0); MEAN CELL VOLUME 98.4 fl (81.0-99.0); MEAN CORPUSCULAR HGB CONC 33.5 g/dL (33.0-37.0); MEAN PLATELET VOLUME 9.6 fl (7.2-11.7); MONO # 0.5 K/uL (0.0-0.8); MONO % 14.2 % (0.0-10.0); NEUT # 1.7 K/uL (1.8-7.0); NEUT % 43.8 % (50.0-75.0); NRBC % 0.1 % (0.0-0.0); RBC 3.57 Mil/uL (3.80-5.20); RED CELL DISTRIBUTION WIDTH 13.7 % (11.5-14.5); WHITE BLOOD COUNT 3.9 K/uL (4.8-10.8)
[2018-08-30 01:14] LABS: PROTHROMBIN TIME 11.4 Seconds (9.8-13.1)
[2018-08-30 01:17] LABS: PARTIAL THROMBOPLASTIN TIME 32.5 Seconds (25.6-37.1)
[2018-08-30 01:28] LABS: ALB/GLOB RATIO 1.1 (1.0-2.1); ALBUMIN 4.2 g/dL (3.5-5.0); ALT/SGPT 18 U/L (9-52); AST/SGOT 28 U/L (14-36); BLOOD UREA NITROGEN 16 mg/dl (7-17); CALCIUM 9.1 mg/dL (8.4-10.2); GFR NON-AFRICAN AMERICAN > 60
[2018-08-30 06:36] VITALS: TEMP 97.7
--- NOTE | 2018-08-30 07:08 | CARD ---
APPROVED REPORT Date of service: 08/30/2018 EKG Measurement Heart [id number] <Conclusion> Normal sinus rhythm Normal ECG
--- NOTE | 2018-08-30 07:08 | CP.PCM.PN ---
Addendum entered and electronically signed by Angelica Archer 08/30/18 12:23: Cervical MRI reviewed by Dr Swansno and discussed with Dr Danielle. Patient is stable for discharge and short follow up. She has an appointment with her PMD 09/03/2018 @ 1100 and was informed of appointment. She is stable for discharge. Original Note: <Margaret Church - Last Filed: 08/30/18 11:57> Subjective - Date & Time of Evaluation Date of Evaluation: 08/30/18 Time of Evaluation: 10:00 - Subjective Subjective: Pt is 43 yo F with a pmhx of depression, PCOS, breast lump, onchomycosis, migraines with neck pain s/p fall, with grade 1 anterolisthesis of C3 on C4. Neurosurgical consult recommended MRI, pending results. Pt is wearing neck collar, denies neck pain, paresthesis/shooting pains, weakness, trouble with vision, nausea, vomiting, diarrhea or constipation. Pt has a good appetite. Objective - Vital Signs/Intake and Output Vital Signs (last 24 hours): Temp Pulse Resp BP Pulse Ox 97.7 F 64 19 119/74 98 08/30/18 06:29 08/30/18 06:29 08/30/18 06:29 08/30/18 06:29 08/30/18 06:29 - Medications Medications: Current Medications Home Med (Zolpidem Tartrate [Ambien Cr]) 12.5 mg PO HS PRN PRN Reason: Insomnia Ibuprofen (Motrin Tab) 600 mg PO Q8 PRN PRN Reason: Pain, moderate (4-7) Last Admin: 08/30/18 01:07 Dose: 600 mg - Labs Labs: 08/30/18 00:50 08/30/18 00:50 PT 11.4 Seconds (9.8-13.1) 08/30/18 00:50 INR 1.0 08/30/18 00:50 APTT 32.5 Seconds (25.6-37.1) 08/30/18 00:50 - Constitutional Appears: Non-toxic, No Acute Distress - Head Exam Head Exam: ATRAUMATIC, NORMAL INSPECTION, NORMOCEPHALIC - Eye Exam Eye Exam: EOMI, Normal appearance - ENT Exam ENT Exam: Mucous Membranes Moist - Neck Exam Additional comments: Wearing neck collar- neck exam limited - Respiratory Exam Respiratory Exam: Clear to Ausculation Bilateral, NORMAL BREATHING PATTERN - Cardiovascular Exam Cardiovascular Exam: RRR, +S1, +S2 - GI/Abdominal Exam GI & Abdominal Exam: Soft, Normal Bowel Sounds - Back Exam Additional comments: Denies paraspinal or vertebral tenderness, no tenderness of shoulders - Neurological Exam Neurological Exam: Alert, Awake, Oriented x3 Neuro motor strength exam: Left Upper Extremity: 5, Right Upper Extremity: 5, Left Lower Extremity: 5, Right Lower Extremity: 5 Additional comments: Sensation 5/5 UE and LE Assessment and Plan - Assessment and Plan (Free Text) Assessment: Pt is 43 year old F with a pmhx of Depression, PCOS, Breast lump, onchomycosis, migraines with neck pain s/p fall, with grade 1 anterolisthesis of C3 on C4. No neurological symptoms/deficits. Neurosurgical consult recommended MRI. 1. Neck Anterolisthesis of C3 on C4 -F/u MRI C spine -Cervical collar in place -Head CT-pending final -C spine CT-pending final -C Spine Xray-spondylisthesis C3C4, marginal grade 1 spondylolisthesis C5-6 on extension -Neuro surgical consult appreciated- Dr. Blackwood -SCDs, EKG-NSR -Motrin for pain -resume home med- Ambien 2. DVT PPx -SCD's 3. Code Status -Full <Angel Danielle - Last Filed: 08/30/18 15:08> Objective - Vital Signs/Intake and Output Vital Signs (last 24 hours): Temp Pulse Resp BP Pulse Ox 97.7 F 76 18 120/72 98 08/30/18 06:29 08/30/18 13:08 08/30/18 13:08 08/30/18 13:08 08/30/18 13:08 - Medications Medications: Current Medications Home Med (Zolpidem Tartrate [Ambien Cr]) 12.5 mg PO HS PRN PRN Reason: Insomnia Ibuprofen (Motrin Tab) 600 mg PO Q8 PRN PRN Reason: Pain, moderate (4-7) Last Admin: 08/30/18 11:22 Dose: 600 mg - Labs Labs: 08/30/18 00:50 08/30/18 00:50 PT 11.4 Seconds (9.8-13.1) 08/30/18 00:50 INR 1.0 08/30/18 00:50 APTT 32.5 Seconds (25.6-37.1) 08/30/18 00:50 Attending/Attestation - Attestation I have personally seen and examined this patient.: Yes I have fully participated in the care of the patient.: Yes I have reviewed all pertinent clinical information, including history, physical exam and plan: Yes Notes (Text): patient without neurological complaints. no weakness, no numbness, no tingling only w neck pain wearing soft collar neurosurgery evaluated and spoke with patient nsaids, tylenol prn pain and mild opioid ultram prn qhs she has pmd and will follow in clinic [facility]
--- NOTE | 2018-08-30 08:41 | RAD ---
Date of service: 08/29/2018 PROCEDURE: Cervical Spine Radiographs. HISTORY: Pain. COMPARISON: CT cervical spine without contrast 08/29/2018 9:05 p.m.. FINDINGS: BONES: No fracture identified throughout the cervical spine. Slight reversal of upper cervical curvature. A minimal grade 1 spondylolisthesis C3 anterior to C4 with anterior osteophyte development as well. No additional spondylosis throughout the remainder. Spondylolisthesis is degenerative. The odontoid process appears intact. Limited grade 1 spondylolisthesis appreciate on extension of the neck at C5-6 with C5 slightly posterior to C6. Normal alignment is seen on flexion and neutral imaging at this level. Again no fracture is identified throughout. No destructive bony lesion appreciated throughout. DISC SPACES: Limited degenerative disc height loss is identified at C3-4. SOFT TISSUES: Prevertebral soft tissues appear normal throughout. Posterior elements appear intact including facet joints. OTHER FINDINGS: None. IMPRESSION: One degenerative spondylolisthesis C3-4. Marginal grade 1 spondylolisthesis C5-6 on extension. Clinically correlate further. PA review assigned.
[2018-08-30 10:37] VITALS: RESP 18
--- NOTE | 2018-08-30 12:20 | MRI ---
Date of service: 08/30/2018 PROCEDURE: MR CERVICAL SPINE WITHOUT CONTRAST HISTORY: paresthesia COMPARISON: Cervical spine radiographs and cervical spine CT without contrast, both from 08/29/2018. TECHNIQUE: Multiecho multiplanar sequences were performed through the cervical spine without the use of intravenous contrast. FINDINGS: A minimal grade 1 spondylolisthesis reiterated C3-4 with C5-6 normal in alignment at this time. Subtle reversal and upper cervical curvature is appreciated. No fracture identified. Posterior elements appear intact including facet joints. However, there is edema identified at the left paraspinal musculature at C 3 and C4 levels extending inferiorly to the C5 level somewhat and minimally at the right paraspinal musculature at C3 and C4 as well. This suggests sprain or partial tear of these muscles. There is no definite disruption of the interspinous ligaments throughout the cervical spine with facet joint alignments intact. Anterior and posterior longitudinal ligaments appear intact without overt tear pattern as well. Craniocervical junction unremarkable. Vertebral body heights preserved. No marrow signal abnormality. Cervical cord appears normal in course caliber contour and intrinsic signal. Prevertebral soft tissues appear unremarkable. C2-C3: Limited disc bulging at C2-3 encroaches ventral nerve roots minimally without causing central canal stenosis. No neural foraminal stenosis. No prominent disc herniation. C3-C4: No definite disc herniation appreciated. Minimal annular tear is seen posteriorly. Minimal disc bulging encroaches ventral nerve roots. No central canal or neural foraminal stenosis. C4-C5: No disc herniation, spinal canal stenosis or neural foraminal narrowing. C5-C6: No disc herniation, spinal canal stenosis or neural foraminal narrowing. C6-C7: Tiny right paracentral disc protrusion without stenosis of central canal or foramina. C7-T1: No disc herniation, spinal canal stenosis or neural foraminal narrowing. OTHER FINDINGS: None. IMPRESSION: 1. Mild sprain or partial tear of left paraspinal musculature at C3, C4 and C5 with minimal similar findings at right paraspinal musculature at C3 and C4. No tear of the anterior posterior longitudinal ligament is appreciated though minimal annular tear is seen at C3-4. Limited, stable grade 1 spondylolisthesis reiterated as seen in prior CT and cervical spine radiographs 08/29/2018. No spondylolisthesis C5-6. 2. Limited disc bulging C2-3 and C3-4. Findings discussed with Dr. Swanson with written down and read back verification 08/30/2018 10:45 a.m..
--- NOTE | 2018-08-30 12:34 | CT ---
Date of service: 08/29/2018 PROCEDURE: CT HEAD WITHOUT CONTRAST. HISTORY: headache COMPARISON: None available. TECHNIQUE: Axial computed tomography images were obtained through the head/brain without intravenous contrast. Supplemental Coronal and Sagittal projections created and reviewed. Radiation dose: Total exam DLP = 829.51 mGy-cm. This CT exam was performed using one or more of the following dose reduction techniques: Automated exposure control, adjustment of the mA and/or kV according to patient size, and/or use of iterative reconstruction technique. FINDINGS: HEMORRHAGE: No intracranial hemorrhage. BRAIN: No mass effect or edema. No atrophy or chronic microvascular ischemic changes. VENTRICLES: Unremarkable. No hydrocephalus. CALVARIUM: Unremarkable. PARANASAL SINUSES: Unremarkable as visualized. No significant inflammatory changes. MASTOID AIR CELLS: Unremarkable as visualized. No inflammatory changes. OTHER FINDINGS: None. IMPRESSION: No acute intracranial abnormalities. No significant findings to account for the clinical presentation. Concordant results (preliminary interpretation) provided by [employer]. Procedure Completed: 21:05. Preliminary Report: Dictated and Authenticated: 21:26. Final Interpretation: 12:30. August 30, 2018
--- NOTE | 2018-08-30 12:36 | CT ---
Date of service: 08/29/2018 PROCEDURE: CT Cervical Spine without contrast HISTORY: neck pain COMPARISON: None available. TECHNIQUE: Axial computed tomography images were obtained of the cervical spine without the use of intravenous contrast. Coronal and sagittal reformatted images were created and reviewed. Radiation dose: Total exam DLP = 278.52 mGy-cm. This CT exam was performed using one or more of the following dose reduction techniques: Automated exposure control, adjustment of the mA and/or kV according to patient size, and/or use of iterative reconstruction technique. FINDINGS: VERTEBRAE: No fracture. Reversal of the anatomic lordosis with kyphosis. Degree: Mild.. No destructive bony lesion. DISCS/SPINAL CANAL/NEURAL FORAMINA: No significant central canal or neural foraminal stenosis. Discs heights are grossly preserved. PARASPINAL SOFT TISSUES: Unremarkable. OTHER FINDINGS: None. IMPRESSION: No acute findings related to/accounting for the clinical presentation. Additional benign and/or incidental findings described above. Concordant results (preliminary interpretation) provided by [employer]. Procedure Completed: 21:07. Preliminary Report: Dictated and Authenticated: 21:30. Final Interpretation: 12:32 August 30, 2018
[2018-08-30 13:08] VITALS: BP 120/72; PULSE 76
--- NOTE | 2018-08-30 17:15 | CP.PCM.DIS ---
<Margaret Church - Last Filed: 08/30/18 18:02> Provider - Provider Date of Admission: 08/29/18 23:41 Attending physician: Arias Hernández Consults: Neurosurgery- Dr. Blackwood Time Spent in preparation of Discharge (in minutes): 15 Diagnosis - Discharge Diagnosis (1) Neck pain, bilateral Status: Acute Comment: Stable for D/C Hospital Course - Lab Results Lab Results: Most Recent Lab Values WBC 3.9 K/uL (4.8-10.8) L 08/30/18 00:50 RBC 3.57 Mil/uL (3.80-5.20) L 08/30/18 00:50 Hgb 11.8 g/dL (12.0-16.0) L 08/30/18 00:50 Hct 35.2 % (34.0-47.0) 08/30/18 00:50 MCV 98.4 fl (81.0-99.0) 08/30/18 00:50 MCH 33.0 pg (27.0-31.0) H 08/30/18 00:50 MCHC 33.5 g/dL (33.0-37.0) 08/30/18 00:50 RDW 13.7 % (11.5-14.5) 08/30/18 00:50 Plt Count 214 K/uL (130-400) 08/30/18 00:50 MPV 9.6 fl (7.2-11.7) 08/30/18 00:50 Neut % (Auto) 43.8 % (50.0-75.0) L 08/30/18 00:50 Lymph % (Auto) 39.1 % (20.0-40.0) 08/30/18 00:50 Hinds % (Auto) 14.2 % (0.0-10.0) H 08/30/18 00:50 Eos % (Auto) 2.3 % (0.0-4.0) 08/30/18 00:50 Baso % (Auto) 0.6 % (0.0-2.0) 08/30/18 00:50 Neut # (Auto) 1.7 K/uL (1.8-7.0) L 08/30/18 00:50 Lymph # (Auto) 1.5 K/uL (1.0-4.3) 08/30/18 00:50 Hinds # (Auto) 0.5 K/uL (0.0-0.8) 08/30/18 00:50 Eos # (Auto) 0.1 K/uL (0.0-0.7) 08/30/18 00:50 Baso # (Auto) 0.0 K/uL (0.0-0.2) 08/30/18 00:50 PT 11.4 Seconds (9.8-13.1) 08/30/18 00:50 INR 1.0 08/30/18 00:50 APTT 32.5 Seconds (25.6-37.1) 08/30/18 00:50 Sodium 138 mmol/l (132-148) 08/30/18 00:50 Potassium 3.8 MMOL/L (3.6-5.0) 08/30/18 00:50 Chloride 102 mmol/L (98-107) 08/30/18 00:50 Carbon Dioxide 30 mmol/L (22-30) 08/30/18 00:50 Anion Gap 10 (10-20) 08/30/18 00:50 BUN 16 mg/dl (7-17) 08/30/18 00:50 Creatinine 0.6 mg/dl (0.7-1.2) L 08/30/18 00:50 Est GFR ( Amer) > 60 08/30/18 00:50 Est GFR (Non-Af Amer) > 60 08/30/18 00:50 Random Glucose 98 mg/dL (65-105) 08/30/18 00:50 Calcium 9.1 mg/dL (8.4-10.2) 08/30/18 00:50 Total Bilirubin 0.3 mg/dl (0.2-1.3) 08/30/18 00:50 AST 28 U/L (14-36) 08/30/18 00:50 ALT 18 U/L (9-52) 08/30/18 00:50 Alkaline Phosphatase 79 U/L (38-126) 08/30/18 00:50 Total Protein 8.0 G/DL (6.3-8.2) 08/30/18 00:50 Albumin 4.2 g/dL (3.5-5.0) 08/30/18 00:50 Globulin 3.8 gm/dL (2.2-3.9) 08/30/18 00:50 Albumin/Globulin Ratio 1.1 (1.0-2.1) 08/30/18 00:50 - Hospital Course Hospital Course: Pt is 43 yo F with a pmhx of depression, PCOS, breast lump, onchomycosis, migraines admitted to ED on 08/30 with neck pain s/p fall. Pt was walking down the stairs and fell down a few steps she grabbed the hand rail but hit her upper back on the stairs. Denied head trauma or LOC, she went to work after and the pain worsened at so she came to the ED. In ED pt had pain with neck flexion, denied paresthesis/shooting pains, weakness, trouble with vision, nausea, vomiting. Neurosurgery consulted, she was placed on a neck collar, C spine Ct, C spine Xray, C spine MRI showed stable grade 1 anterolisthesis of C3 on C4, and bilateral muscle tears. Pt stable for D/C no neck pain or parsthesias, given pain medication and ED precautions. - Date & Time of H&P Date of H&P: 08/30/18 Time of H&P: 00:41 Discharge Exam - Head Exam Head Exam: ATRAUMATIC, NORMAL INSPECTION, NORMOCEPHALIC - Eye Exam Eye Exam: Normal appearance - ENT Exam ENT Exam: Mucous Membranes Moist - Neck Exam Neck exam: Full Rom, Normal Inspection - Respiratory Exam Respiratory Exam: Clear to PA & Lateral, NORMAL BREATHING PATTERN - Cardiovascular Exam Cardiovascular Exam: RRR, +S1, +S2 - GI/Abdominal Exam GI & Abdominal Exam: Normal Bowel Sounds, Soft - Extremities Exam Extremities exam: normal inspection - Neurological Exam Neurological exam: Alert, CN II-XII Intact, Normal Gait, Oriented x3 Discharge Plan - Follow Up Plan Condition: STABLE Disposition: HOME/ ROUTINE Patient education suggested?: Yes Instructions: Generalized Neck Pain (DC) Additional Instructions: Follow up with with Dr. Mitchell on 09/03/18 @11:00 in [facility] ER precautions reviewed with patient, fever over 100.4 with Tylenol, worsening pain, chest pain, shortness of breath, severe sudden headache. Referrals: [facility] [Outside] - 09/03/18 11:00 am <Angel Danielle - Last Filed: 08/30/18 18:06> Provider - Provider Date of Admission: 08/29/18 23:41 Attending physician: Arias Hernández [facility] Course - Lab Results Lab Results: Most Recent Lab Values WBC 3.9 K/uL (4.8-10.8) L 08/30/18 00:50 RBC 3.57 Mil/uL (3.80-5.20) L 08/30/18 00:50 Hgb 11.8 g/dL (12.0-16.0) L 08/30/18 00:50 Hct 35.2 % (34.0-47.0) 08/30/18 00:50 MCV 98.4 fl (81.0-99.0) 08/30/18 00:50 MCH 33.0 pg (27.0-31.0) H 08/30/18 00:50 MCHC 33.5 g/dL (33.0-37.0) 08/30/18 00:50 RDW 13.7 % (11.5-14.5) 08/30/18 00:50 Plt Count 214 K/uL (130-400) 08/30/18 00:50 MPV 9.6 fl (7.2-11.7) 08/30/18 00:50 Neut % (Auto) 43.8 % (50.0-75.0) L 08/30/18 00:50 Lymph % (Auto) 39.1 % (20.0-40.0) 08/30/18 00:50 Hinds % (Auto) 14.2 % (0.0-10.0) H 08/30/18 00:50 Eos % (Auto) 2.3 % (0.0-4.0) 08/30/18 00:50 Baso % (Auto) 0.6 % (0.0-2.0) 08/30/18 00:50 Neut # (Auto) 1.7 K/uL (1.8-7.0) L 08/30/18 00:50 Lymph # (Auto) 1.5 K/uL (1.0-4.3) 08/30/18 00:50 Hinds # (Auto) 0.5 K/uL (0.0-0.8) 08/30/18 00:50 Eos # (Auto) 0.1 K/uL (0.0-0.7) 08/30/18 00:50 Baso # (Auto) 0.0 K/uL (0.0-0.2) 08/30/18 00:50 PT 11.4 Seconds (9.8-13.1) 08/30/18 00:50 INR 1.0 08/30/18 00:50 APTT 32.5 Seconds (25.6-37.1) 08/30/18 00:50 Sodium 138 mmol/l (132-148) 08/30/18 00:50 Potassium 3.8 MMOL/L (3.6-5.0) 08/30/18 00:50 Chloride 102 mmol/L (98-107) 08/30/18 00:50 Carbon Dioxide 30 mmol/L (22-30) 08/30/18 00:50 Anion Gap 10 (10-20) 08/30/18 00:50 BUN 16 mg/dl (7-17) 08/30/18 00:50 Creatinine 0.6 mg/dl (0.7-1.2) L 08/30/18 00:50 Est GFR ( Amer) > 60 08/30/18 00:50 Est GFR (Non-Af Amer) > 60 08/30/18 00:50 Random Glucose 98 mg/dL (65-105) 08/30/18 00:50 Calcium 9.1 mg/dL (8.4-10.2) 08/30/18 00:50 Total Bilirubin 0.3 mg/dl (0.2-1.3) 08/30/18 00:50 AST 28 U/L (14-36) 08/30/18 00:50 ALT 18 U/L (9-52) 08/30/18 00:50 Alkaline Phosphatase 79 U/L (38-126) 08/30/18 00:50 Total Protein 8.0 G/DL (6.3-8.2) 08/30/18 00:50 Albumin 4.2 g/dL (3.5-5.0) 08/30/18 00:50 Globulin 3.8 gm/dL (2.2-3.9) 08/30/18 00:50 Albumin/Globulin Ratio 1.1 (1.0-2.1) 08/30/18 00:50 Attending/Attestation - Attestation I have personally seen and examined this patient.: Yes I have fully participated in the care of the patient.: Yes I have reviewed all pertinent clinical information, including history, physical exam and plan: Yes Notes (Text): Neck pain - stable grade 1 anterolisthesis of C3 on C4, and bilateral muscle tears.
[2018-08-30] MEDS ORDERED: ZOLPIDEM TARTRATE 12.5 MG PO PRN (22:00)
--- NOTE | 2018-08-31 08:34 | CON ---
DATE: 08/30/2018 HISTORY OF PRESENT ILLNESS: This is a 43-year-old black female who comes to the emergency room, reports that two days ago she slipped and fell down the stairs, fell on her back. She caught herself, did not hit her head. There was no loss of consciousness. She was able to get up and do her full day of activities yesterday, came to the ER because she had some discomfort in her neck, particularly when she fully flexed her neck forward. She denies any numbness, tingling or paresthesias in any limb. PAST MEDICAL HISTORY: She has no significant past medical history. MEDICATIONS: She takes Ambien. ALLERGIES: SHE HAS NO ALLERGIES. FAMILY HISTORY: Noncontributory. SOCIAL HISTORY: She does not smoke or drink. REVIEW OF SYSTEMS: Essentially negative. LABORATORY DATA: The patient in the emergency room had a CT of the cervical spine and MRI of the cervical spine and flexion and extension x-rays. There appears to be 1-2 mm subluxation at C3-C4 on motion. The radiologist feels there is also at C5-C6 1 mm to 2 mm subluxation on motion. The MRI shows some contusion within the left paraspinal musculature. No ligamentous tears, no anterior soft tissue swelling and no fractures. There is also a small disk herniation at C3-C4. ASSESSMENT: At this point, her neurologic exam finds that she has no motor weakness, no sensory deficits, reflexes 2/4. She has full range of motion in her neck in all directions including tilting, flexion, extension and rotation, and she has really no tenderness to palpation posteriorly. PLAN: At this point, I recommend that we put her in a soft collar, nonsteroidal analgesics for discomfort, obtain a set of flexion and extension x-rays in 2 weeks, remain in the collar for 2 weeks and see me after the x-rays are performed. There is no indication for her to be admitted to the hospital for this injury at this time. Amado Swanson MD
== END 2018-08-30 12:57 | disposition home or self-care (01) ==
LOC: H.ER 19:28 → H.ERHOLD 23:41 → INTOOBSV 23:41
PROVIDERS: ADMIT Internal Medicine; ATTEND Internal Medicine
DX: M43.12 Spondylolisthesis, cervical region (principal); E28.2 Polycystic ovarian syndrome; G47.00 Insomnia, unspecified; S16.1XXA Strain of muscle, fascia and tendon at neck level, initial encounter; W10.9XXA Fall (on) (from) unspecified stairs and steps, initial encounter; Y93.01 Activity, walking, marching and hiking; F32.9 Major depressive disorder, single episode, unspecified
CPT/HCPCS: 70450; 72052; 72125; 72141; 80053; 81025; 85025; 85610; 85730; 93005; 99285; G0378

== ENCOUNTER 2018-10-25 18:31 | Emergency (ER) | payer MEDICAID ==
[2018-10-25 18:32] VITALS: BMI 28.2
[2018-10-25 18:42] VITALS: RESP 16
[2018-10-25 21:09] LABS: SQUAMOUS EPITHIAL 2 /hpf (0-5); URINE BACTERIA RARE (<OCC); URINE BILIRUBIN NEGATIVE (NEGATIVE); URINE BLOOD NEGATIVE (NEGATIVE); URINE CLARITY SLIGHTY-CLOUDY (Clear); URINE COLOR YELLOW (YELLOW); URINE GLUCOSE (UA) NEG (NEGATIVE); URINE LEUKOCYTE ESTERASE NEG Leu/uL (Negative); URINE PROTEIN NEGATIVE (NEGATIVE); URINE UROBILINOGEN 0.2-1.0 mg/dL (0.2-1.0)
[2018-10-25 21:10] LABS: ALB/GLOB RATIO 1.2 (1.0-2.1); ALBUMIN 4.3 g/dL (3.5-5.0); ALT/SGPT 12 U/L (9-52); AST/SGOT 25 U/L (14-36); BLOOD UREA NITROGEN 16 mg/dl (7-17); CALCIUM 9.4 mg/dL (8.4-10.2); GFR NON-AFRICAN AMERICAN > 60
--- NOTE | 2018-10-25 21:48 | ED PDOC ---
HPI: Headache Time Seen by Provider: 10/25/18 19:15 Chief Complaint (Nursing): Headache Chief Complaint (Provider): Headache History Per: Patient History/Exam Limitations: no limitations Onset/Duration Of Symptoms: Days (x 2 weeks ) Current Symptoms Are (Timing): Still Present Quality: "Pain" Associated Symptoms: denies: Photophobia Additional Complaint(s): 43 year old female with a history of migraines and sinus disease presents to the ED with a right sided intermittent headache for one week Patient reports that t he headache was preceded by a twitch on the right side of her face. The twitch happens three to four times a day and lasts for a few seconds. The headache is severe and sometimes accompanied by left sided neck pain and numbness. She was admitted to this hospital two months ago after a head injury and a cervical disc slip. There was no surgical intervention needed. Patient reports that Denies nausea, vomiting, dizziness and vision changes. PMD: [facility] Past Medical History Reviewed: Historical Data, Nursing Documentation, Vital Signs Vital Signs: Last Vital Signs Temp 98.7 F 10/25/18 18:38 Pulse 74 10/25/18 18:38 Resp 16 10/25/18 18:38 BP 128/78 10/25/18 18:38 Pulse Ox 97 10/25/18 18:38 - Medical History PMH: Migraine Denies: Chronic Kidney Disease - Surgical History Surgical History: Tonsillectomy, (x 4) - Family History Family History: States: CAD - Home Medications Home Medications: Ambulatory Orders Medication Instructions Recorded Zolpidem Tartrate [Ambien Cr] 12.5 mg PO HS 08/30/18 Acetaminophen/Butalbital/Caf 1 - 2 tab PO Q6 PRN #12 tab 10/25/18 [Fioricet] Amoxicillin/Clavulanate [Augmentin 1 tab PO BID #14 tab 10/25/18 875 MG-125 MG] - Allergies Allergies/Adverse Reactions: Allergies Allergy/AdvReac Type Severity Reaction Status Date / Time No Known Allergies Allergy Verified 08/29/18 19:35 Review of Systems ROS Statement: Except As Marked, All Systems Reviewed And Found Negative Musculoskeletal: Positive for: Neck Pain (left sided; sometimes numbness) Neurological: Positive for: Headache Physical Exam - Reviewed Nursing Documentation Reviewed: Yes Vital Signs Reviewed: Yes - Physical Exam Appears: Positive for: No Acute Distress Head Exam: Positive for: ATRAUMATIC, NORMAL INSPECTION, NORMOCEPHALIC Skin: Positive for: Normal Color, Warm, Dry Eye Exam: Positive for: Normal appearance, EOMI, PERRL. Negative for: Other (photophobia) Neck: Positive for: Normal, Painless ROM, Supple Cardiovascular/Chest: Positive for: Regular Rate, Rhythm. Negative for: Murmur Respiratory: Positive for: Normal Breath Sounds. Negative for: Respiratory Distress Gastrointestinal/Abdominal: Positive for: Normal Exam, Soft. Negative for: Tenderness Extremity: Positive for: Normal ROM. Negative for: Deformity Neurologic/Psych: Positive for: Alert, Oriented (x 3). Negative for: Motor/Sensory Deficits - Laboratory Results Result Diagrams: 10/25/18 20:50 10/25/18 20:50 - ECG O2 Sat by Pulse Oximetry: 97 (RA) Pulse Ox Interpretation: Normal Medical Decision Making Medical Decision Makin:29 Impression: 43 year old female with a headache in setting of known previous migraines Due to patient grading headache as "worst in her life", will do imaging and labs. Initial Plan: --Head CT --Sinuses CT --CMP --Urine preg --Urine dip --CBC --ESR --Reglan 10 mg IVPB --Toradol 30 mg IV --Influenza AB --UA 22:[address] FINDINGS: BRAIN No acute intraparenchymal hemorrhage. No mass lesion. No CT evidence for acute territorial infarct. No midline shift or extra-axial collections. VENTRICLES: No hydrocephalus. ORBITS: The orbits are unremarkable. SINUSES AND MASTOIDS: The paranasal sinuses and mastoid air cells are clear. BONES: No fracture. SOFT TISSUES: Unremarkable. MISCELLANEOUS: The study of 08/29/18 percent for comparison is a CT of the neck. IMPRESSION: 1. The study of 08/29/18 percent for comparison is a CT of the neck. 2. Unremarkable CT of the brain. 22:[address] FINDINGS: PARANASAL SINUSES: Bilateral maxillary sinus mucoperiosteal thickening, right greater than left. Right ostiomeatal complex occluded. Nasal septum deviates slightly to the right. The remainder the paranasal sinuses and the visualized portions of the mastoid air cells are well-aerated. ORBITS: Unremarkable. NASAL CAVITY/SEPTUM: Patent. the septum deviates slightly to the right. BONES: No acute osseous abnormality. SOFT TISSUES: The soft tissues are unremarkable. IMPRESSION: 1. Bilateral maxillary sinus mucoperiosteal thickening, right greater than left. Right ostiomeatal complex occluded. 2. Nasal septum deviates slightly to the right. The remainder the paranasal sinuses and the visualized portions of the mastoid air cells are well-aerated. 3. Bilateral maxillary sinus mucoperiosteal thickening. 4. Right ostiomeatal complex occluded. 22:43 --Patient is stable upon discharge. Diagnosis is sinusitis. --- Scribe Attestation: Documented by Gertrudis Arteaga acting as a scribe for Branden Marte MD Provider Scribe Attestation: All medical record entries made by the Scribe were at my direction and personally dictated by me. I have reviewed the chart and agree that the record accurately reflects my personal performance of the history, physical exam, medical decision making, and the department course for this patient. I have also personally directed, reviewed, and agree with the discharge instructions and disposition. Disposition - Clinical Impression Clinical Impression: Sinusitis - Patient ED Disposition Is Patient to be Admitted: No - Disposition Disposition: Routine/Home Disposition Time: 22:43 Condition: STABLE Prescriptions: Acetaminophen/Butalbital/Caf [Fioricet] 1 - 2 tab PO Q6 PRN #12 tab PRN Reason: Headache Amoxicillin/Clavulanate [Augmentin 875 MG-125 MG] 1 tab PO BID #14 tab Instructions: Sinusitis in Adults Forms: [employer] ([employer])
[2018-10-25 21:58] LABS: BASO % 0.3 % (0.0-2.0); EOS # 0.1 K/uL (0.0-0.7); EOS % 1.7 % (0.0-4.0); HEMOGLOBIN 11.9 g/dL (12.0-16.0); LYMPH # 1.4 K/uL (1.0-4.3); LYMPH % 36.7 % (20.0-40.0); MEAN CELL VOLUME 100.1 fl (81.0-99.0); MEAN CORPUSCULAR HEMOGLOBIN 32.7 pg (27.0-31.0); MEAN CORPUSCULAR HGB CONC 32.7 g/dL (33.0-37.0); MEAN PLATELET VOLUME 10.1 fl (7.2-11.7); MONO # 0.4 K/uL (0.0-0.8); MONO % 11.6 % (0.0-10.0); NEUT # 1.9 K/uL (1.8-7.0); NEUT % 49.7 % (50.0-75.0); NRBC % 0.1 % (0.0-0.0); RBC 3.64 Mil/uL (3.80-5.20); RED CELL DISTRIBUTION WIDTH 13.2 % (11.5-14.5); WHITE BLOOD COUNT 3.7 K/uL (4.8-10.8)
[2018-10-25 23:01] VITALS: BP 122/76; PULSE 72; TEMP 98.1; O2SAT 99
--- NOTE | 2018-10-26 09:58 | CT ---
Date of service: 10/25/2018 PROCEDURE: CT HEAD WITHOUT CONTRAST. HISTORY: headache COMPARISON: 08/29/2018 TECHNIQUE: Axial computed tomography images were obtained through the head/brain without intravenous contrast. Radiation dose: Total exam DLP = 1386.06 mGy-cm. This CT exam was performed using one or more of the following dose reduction techniques: Automated exposure control, adjustment of the mA and/or kV according to patient size, and/or use of iterative reconstruction technique. FINDINGS: HEMORRHAGE: No intracranial hemorrhage. BRAIN: No mass effect or edema. No evidence of acute infarct. No atrophy or chronic white matter ischemic change. Please note that there flattening of the pituitary along the floor of the sella turcica, consistent with "empty sella". This has a known association with headache.. VENTRICLES: Unremarkable. No hydrocephalus. CALVARIUM: Unremarkable. PARANASAL SINUSES: Unremarkable as visualized. No significant inflammatory changes. MASTOID AIR CELLS: Unremarkable as visualized. No inflammatory changes. OTHER FINDINGS: None. IMPRESSION: No intracranial mass, hemorrhage or evidence of acute infarct. Incidentally noted "empty sella ". Please note that there is known association with headache. Otherwise unremarkable. The preliminary findings for this examination were reported by [facility] at 10:12 p.m. on 10/25/2018. There is concurrence of this report with the preliminary findings.
--- NOTE | 2018-10-26 10:46 | CT ---
Date of service: 10/25/2018 PROCEDURE: CT SINUSES WITHOUT CONTRAST HISTORY: Headache COMPARISON: Comparison made with concurrent CT scan brain. TECHNIQUE: Contiguous axial CT images of the paranasal sinuses were obtained. Coronal and sagittal reformats were generated. Radiation dose: Total exam DLP = 1386.07 mGy-cm. This CT exam was performed using one or more of the following dose reduction techniques: Automated exposure control, adjustment of the mA and/or kV according to patient size, and/or use of iterative reconstruction technique. FINDINGS: FRONTAL SINUSES: Clear. ETHMOID SINUSES: Ethmoid air complex is well developed and currently relatively well-aerated.. SPHENOID SINUSES: Clear. MAXILLARY SINUSES: Mild mucosal thickening right and minimal mucosal thickening left maxillary antra... SINUS DRAINAGE: Occlusion right ostiomeatal complex however left ostiomeatal complex patent.. The frontal recesses and sphenoethmoid recesses clear. NASAL SEPTUM: No significant deviation. No destructive lesion. MASS: None. SKULL BASE: Unremarkable. Visualized mastoid air complexes are well-developed and currently well-aerated. TEMPORAL BONES: Middle ears and mastoid grossly unremarkable. OTHER FINDINGS: Note again made of partially empty sella.. IMPRESSION: Mild mucosal thickening both maxillary antra right greater than left with occlusion right ostiomeatal complex. Minor mucosal thickening left maxillary antrum.
== END 2018-10-25 23:01 | disposition home or self-care (01) ==
LOC: H.ER 18:31
DX: J32.9 Chronic sinusitis, unspecified (principal)
CPT/HCPCS: 70450; 70486; 80053; 81003; 81025; 85025; 85651; 87804; 96374; 96375; 99285; J1885; J2765

== ENCOUNTER 2019-02-24 00:30 | Emergency (ER) | payer MEDICAID ==
[2019-02-24 00:43] VITALS: BMI 27.7
[2019-02-24 00:52] VITALS: TEMP 98.5
[2019-02-24 01:46] LABS: BASO % 0.5 % (0.0-2.0); EOS # 0.1 K/uL (0.0-0.7); EOS % 2.3 % (0.0-4.0); HEMOGLOBIN 11.5 g/dL (12.0-16.0); LYMPH # 1.5 K/uL (1.0-4.3); MEAN CELL VOLUME 97.7 fl (81.0-99.0); MEAN CORPUSCULAR HEMOGLOBIN 33.2 pg (27.0-31.0); MEAN PLATELET VOLUME 9.3 fl (7.2-11.7); MONO # 0.5 K/uL (0.0-0.8); MONO % 13.7 % (0.0-10.0); NEUT # 1.6 K/uL (1.8-7.0); NEUT % 42.5 % (50.0-75.0); NRBC % 0.3 % (0.0-0.0); RBC 3.46 Mil/uL (3.80-5.20); RED CELL DISTRIBUTION WIDTH 13.5 % (11.5-14.5); WHITE BLOOD COUNT 3.7 K/uL (4.8-10.8)
[2019-02-24 01:56] LABS: BLOOD UREA NITROGEN 13 mg/dl (7-17); CALCIUM 9.5 mg/dL (8.4-10.2); GFR NON-AFRICAN AMERICAN > 60
[2019-02-24 02:08] LABS: B-TYPE NATRIURETIC PEPTIDE 51.2 pg/ml (0-450)
--- NOTE | 2019-02-24 02:34 | ED PDOC ---
HPI: SOB/CHF/COPD Time Seen by Provider: 02/24/19 00:44 Chief Complaint (Nursing): Shortness Of Breath Chief Complaint (Provider): Shortness Of Breath History Per: Patient History/Exam Limitations: no limitations Onset/Duration Of Symptoms: Hrs Current Symptoms Are (Timing): Still Present Additional Complaint(s): 43 y/o female with a PMHx of anxiety presents to the ED for evaluation of intermittent chest tightness associated with palpitations and shortness of breath since earlier this afternoon. Patient denies feeling any pain at present but reports of having just chest tightness at this time. Patient reports of noticing a sharp pain to the right arm that resolved spontaneously. Patient thought current symptoms was an anxiety attack because of the similar symptoms but because it was occurring more frequently, patient got concerned. Otherwise, patient offers no other complaints. PMD: [facility] Past Medical History Reviewed: Historical Data, Nursing Documentation, Vital Signs Vital Signs: Last Vital Signs Temp 98.5 F 02/24/19 00:43 Pulse 57 L 02/24/19 00:56 Resp 11 L 02/24/19 01:08 BP 117/78 02/24/19 00:56 Pulse Ox 100 02/24/19 01:08 - Medical History PMH: Anxiety, Migraine Denies: Chronic Kidney Disease - Surgical History Surgical History: Tonsillectomy, (x 4) - Family History Family History: States: CAD - Home Medications Home Medications: Ambulatory Orders Medication Instructions Recorded Zolpidem Tartrate [Ambien Cr] 12.5 mg PO HS 08/30/18 Acetaminophen/Butalbital/Caf 1 - 2 tab PO Q6 PRN #12 tab 10/25/18 [Fioricet] Amoxicillin/Clavulanate [Augmentin 1 tab PO BID #14 tab 10/25/18 875 MG-125 MG] - Allergies Allergies/Adverse Reactions: Allergies Allergy/AdvReac Type Severity Reaction Status Date / Time No Known Allergies Allergy Verified 02/24/19 00:43 Wells Criteria for PE - Wells Criteria for Pulmonary Embolism Clinical Signs and Symptoms of DVT: No P.E is #1 Diagnosis, or Equally Likely: No Heart Rate >100: No Immobilization at least 3 days;Surgery previous 4 weeks: No Previous, objectively diagnosed PE or DVT: No Hemoptysis: No Malignancy w/treatment within 6 months, or palliative: No Total Score: 0 Review of Systems ROS Statement: Except As Marked, All Systems Reviewed And Found Negative Cardiovascular: Positive for: Chest Pain (tightness), Palpitations Respiratory: Positive for: Shortness of Breath Physical Exam - Reviewed Nursing Documentation Reviewed: Yes Vital Signs Reviewed: Yes - Physical Exam Appears: Positive for: No Acute Distress Head Exam: Positive for: ATRAUMATIC, NORMOCEPHALIC Skin: Positive for: Normal Color, Warm, Dry Eye Exam: Positive for: Normal appearance, EOMI, PERRL Neck: Positive for: Normal, Painless ROM, Supple Cardiovascular/Chest: Positive for: Regular Rate, Rhythm. Negative for: Murmur Respiratory: Positive for: Normal Breath Sounds. Negative for: Respiratory Distress Gastrointestinal/Abdominal: Positive for: Normal Exam, Soft. Negative for: Tenderness Extremity: Positive for: Normal ROM. Negative for: Deformity Neurological/Psych: Positive for: Awake, Alert, Oriented (x3). Negative for: Motor/Sensory Deficits - Laboratory Results Result Diagrams: 02/24/19 01:39 02/24/19 01:39 Lab Results: D-Dimer, Quantitative < 200 ng/mlDDU (0-230) 02/24/19 01:39 Troponin I < 0.0120 ng/mL (0.00-0.120) 02/24/19 01:39 NT-Pro-B Natriuret Pep 51.2 pg/ml (0-450) 02/24/19 01:39 - ECG ECG Rhythm: Positive for: Normal QRS, Normal ST Segment, Sinus Bradycardia Rate: 59 O2 Sat by Pulse Oximetry: 100 (RA) Pulse Ox Interpretation: Normal Medical Decision Making Medical Decision Making: Time: 101 Impression: Chest Pain and Shortness of Breath Differentials include but not limited to ACS, Pulmonary Embolism, Anxiety, Cardiac Arrhythmia Plan: -- EKG -- B-Type Natriuretic -- BMP -- Thyroid Stimualting Hormone -- Troponin I -- CBC with Differentials -- D Dimer -- CXR Two Views Scribe Attestation: Documented by Christy Euceda, acting as a scribe Ioana Lam MD. Provider Scribe Attestation: All medical record entries made by the Scribe were at my direction and personally dictated by me. I have reviewed the chart and agree that the record accurately reflects my personal performance of the history, physical exam, medical decision making, and the department course for this patient. I have also personally directed, reviewed, and agree with the discharge instructions and disposition. Disposition - Clinical Impression Clinical Impression: Chest pain - Patient ED Disposition Is Patient to be Admitted: No Doctor Will See Patient In The: Office Counseled Patient/Family Regarding: Studies Performed, Diagnosis, Need For Followup - Disposition Referrals: Pepe Barba MD [Family Provider] - Disposition: Routine/Home Disposition Time: 03:10 Condition: GOOD Additional Instructions: DESHAWN MARTIN, thank you for letting us take care of you today. Your provider was Josefina Lam MD and you were treated for SOB. The emergency medical care you received today was directed at your acute symptoms. If you were prescribed any medication, please fill it and take as directed. It may take several days for your symptoms to resolve. Return to the Emergency Department if your symptoms worsen, do not improve, or if you have any other problems. Please contact your doctor or call one of the physicians/clinics you have been referred to that are listed on the Patient Visit Information form that is included in your discharge packet. Bring any paperwork you were given at discharge with you along with any medications you are taking to your follow up visit. Our treatment cannot replace ongoing medical care by a primary care provider outside of the emergency department. Thank you for allowing the [facility] team to be part of your care today. If you had an X-Ray or CT scan: A Radiologist will review the ED reading if any change in treatment is needed we will contact you. If you had a blood, urine, or wound culture: It will take several days for the results, if any change in treatment is needed we will contact you. Instructions: Chest Pain MILLICENT Risk Score for UA/NSTEMI - MILLICENT Risk Score Age > 64: NO 3 or more CAD Risk Factors: NO Known CAD (Stenosis greater than 50%): NO Aspirin use in past 7 days: NO Severe Angina: NO EKG ST changes greater than 0.5mm: NO Positive Cardiac Marker: NO MILLICENT Score: 0 % risk at 14 days of: all cause mortality, new or recurrent AK, or severe recurrent ischemia requiring urgen revascularization: 5%
[2019-02-24 06:06] VITALS: BP 114/63; PULSE 58; RESP 18; O2SAT 99
--- NOTE | 2019-02-24 08:35 | RAD ---
Date of service: 02/24/2019 HISTORY: chest pain COMPARISON: 02/20/2018 TECHNIQUE: Chest PA and lateral views FINDINGS: LUNGS: No active pulmonary disease. PLEURA: No significant pleural effusion identified. No pneumothorax apparent. CARDIOVASCULAR: No aortic atherosclerotic calcification present. Normal cardiac size. No pulmonary vascular congestion. OSSEOUS STRUCTURES: No significant abnormalities. VISUALIZED UPPER ABDOMEN: Normal. OTHER FINDINGS: None. IMPRESSION: No active disease.
--- NOTE | 2019-02-24 09:00 | CARD ---
APPROVED REPORT Date of service: 02/24/2019 EKG Measurement Heart [id number] <Conclusion> Sinus bradycardia Otherwise normal ECG
== END 2019-02-24 03:20 | disposition home or self-care (01) ==
LOC: H.ER 00:30
DX: R07.89 Other chest pain (principal); F41.9 Anxiety disorder, unspecified